=== PATIENT | male | born 1960 | race Caucasian/White ===

== ENCOUNTER 2018-07-02 02:11 | Inpatient (IN) | payer MEDICARE, OTHER ==
[~2018-07-02] VITALS: Ht 177.8 cm; Wt 84.8 kg
[~2018-07-02 02:11] MED LIST: ATOR20TA PO; CHOL10002 PO; CLOZ100T PO; DULA1.5P SQ; INSU300I SQ; LOSA25TA13 PO; MELO-105 PO; METF-440 PO; METO25TA6 PO; NATE120T6 PO; PIOG45TA5 PO
--- NOTE | 2018-07-02 02:33 | NUR ---
ADDICTIONS COUNSELOR ASSISTANT BEDSIDE FOR BLOOD DRAW. PT UNABLE TO GIVE URINE SAMPLE AT THIS TIME. WILL TRY AGAIN AT A LATER TIME.
[2018-07-02 02:43] LABS: BASOPHILS % (AUTO) 0.4 % (0.0-2.0); EOSINOPHILS % (AUTO) 0.6 % (0.0-6.0); HEMATOCRIT 44 % (39-51); HEMOGLOBIN 14.4 g/dL (13.5-17.5); LYMPHOCYTES # (AUTO) 1.7 /CMM (0.8-4.8); LYMPHOCYTES % (AUTO) 14.1 % (20.0-44.0); MEAN CORPUSCULAR HGB CONC 33 g/dl (31.0-36.0); MEAN CORPUSCULAR VOLUME 86 fL (80-96); MONOCYTES # (AUTO) 1.2 /CMM (0.1-1.30); NEUTROPHILS # (AUTO) 9.1 /CMM (1.8-8.9); NEUTROPHILS % (AUTO) 74.9 % (43.0-81.0); PLATELET COUNT (AUTO) 281 /CMM (150-450); RDW COEFFICIENT OF VARIATION 14.4 (11.5-15.0); RED BLOOD CELL COUNT(AUTO) 5.13 MIL/uL (4.5-6.0); WHITE BLOOD COUNT (AUTO) 12.1 K/uL (4.3-11.0)
--- NOTE | 2018-07-02 03:00 | NUR ---
PT UNABLE TO GIVE URINE SAMPLE AT THIS TIME. WILL TRY AGAIN AT A LATER TIME
[2018-07-02 03:09] LABS: ALANINE AMINOTRANSFERASE 48 U/L (12-78); ALBUMIN 3.5 g/dL (3.4-5.0); ALKALINE PHOSPHATASE 103 U/L (46-116); ASPARTATE AMINOTRANSFERASE 45 U/L (15-37); BILIRUBIN,DIRECT 0.2 mg/dL (0.0-0.2); BILIRUBIN,TOTAL 0.6 mg/dL (0.2-1.0); CALCIUM, SERUM 9.5 mg/dL (8.5-10.1); CARBON DIOXIDE 23 mmol/L (21-32); CREATININE 1.4 mg/dL (0.6-1.3); GLUCOSE 271 mg/dL (74-106); SALICYLATE 2.5 mg/dL (2.8-20.0); TOTAL PROTEIN, SERUM 7.6 g/dL (6.4-8.2); UREA NITROGEN, BLOOD 30 mg/dL (7-18)
[2018-07-02 03:10] LABS: ACETAMINOPHEN < 0 ug/ml (10-30); ALCOHOL, BLOOD < 0 mg/dL (0-0)
[2018-07-02 03:17] LABS: CHLORIDE 98 mmol/L (98-107); POTASSIUM 3.7 mmol/L (3.5-5.1); SODIUM SERUM 134 mmol/L (136-145)
--- NOTE | 2018-07-02 04:02 | NUR ---
Patient is resting comfortably in bed with eyes closed. Easily aroused. VSS
--- NOTE | 2018-07-02 04:15 | NUR ---
PT UNABLE TO GIVE URINE SAMPLE AT THIS TIME. MADE AWARE. PER MD, URINE SAMPLE NO LONGER REQUIRED. WILL CONTINUE TO MONITOR PT.
--- NOTE | 2018-07-02 05:17 | NUR ---
REPORT GIVEN TO KEIRA RUSHING FOR GINNY.
[2018-07-02 05:45] VITALS: BP 105/63
--- NOTE | 2018-07-02 05:55 | NUR ---
RN NOTES ADMITTED PT FROM ER VIA WHEELCHAIR, AWAKE, ALERT , NO SIGNS OF DISTRESS AND DISCOMFORT NOTED. UNABLE TO ASSESS PT BECAUSE HE'S NOT RESPONDING TO QUESTIONS BEING ASK, NON INTERACTIVE PT ADMITTED ON A 5150 HOLD FOR DTS. PT IS BANGING HIS HEAD ON THE FINK IN SNF, [facility]. PT APPEARS CALM AT THIS TIME AND IN CATATONIC STATE. SKIN AND BODY ASSESSMENT DONE, SKIN CLEAR AND INTACT.ALL BELONGINGS INVENTORIED AND CHECKED FOR CONTRABAND. KEPT COMFORTABLE AND ATTENDED. SAFETY MEASURES AND FALL PRECAUTION OBSERVED. WILL CONTINUE TO MONITOR TO MAINTAIN SAFETY.
[2018-07-02] MEDS ORDERED: MAG HYDROX/AL HYDROX/SIMETH 30 ML UDC PO PRN (06:00)
[2018-07-02] MEDS ORDERED: ACETAMINOPHEN 325 MG TABLET PO PRN (06:00)
[2018-07-02] MEDS ORDERED: MAGNESIUM HYDROXIDE 30 ML UDC PO PRN (06:00)
[2018-07-02 08:00] VITALS: BP 149/97
[2018-07-02] MEDS ORDERED: FLUO20CA36 PO (09:01)
[2018-07-02] MEDS ORDERED: METO-356 PO (09:01)
[2018-07-02] MEDS ORDERED: DOCU100C36 PO (09:01)
[2018-07-02] MEDS ORDERED: FLUO40CA8 PO (09:01)
[2018-07-02] MEDS ORDERED: INSU100V27 SQ (09:01)
[2018-07-02] MEDS: CLOZAPINE 100 MG TABLET PO SCH ×2 (13:30→21:11)
[2018-07-02] MEDS ORDERED: *INSULIN REGULAR(HUMULIN R)HUM 100 UNIT/ML VIAL SQ PRN (14:00)
[2018-07-02] MEDS ORDERED: INSULIN REGULAR, HUMAN 100 UNIT/ML 3 ML VIAL SQ PRN (14:00)
[2018-07-02] MEDS ORDERED: DEXTROSE 50%-WATER 50 ML DISP.SYRIN IV PRN ×2 (14:00)
--- NOTE | 2018-07-02 15:05 | NUR ---
SW met with pt in his room to conduct his assessment. Present in the room was Logan CAPPS. Pt was sitting on his bed, slouched over rocking himself back and forth. SW attempted to ask pt questions however he was unresponsive. Pt did not have eye contact with SW. SW inquired if pt would like for this SW to return later; which pt agreed. SW will follow up with pt at a later time on this date to attempt to conduct assessment.
--- NOTE | 2018-07-02 15:09 | NUR ---
JOSH met with pt in his room to conduct his assessment for the second time. Present in the room was Logan CAPPS. Pt was laying on his bed with his eyes open. SW asked pt if he was ready to complete assessment. Pt however was un responsive. SW asked pt if there was any family/friends this SW can contact for collateral information. Pt was unresponsive. Josh informed pt the importance of collaborating with SW in order to ensure a safe and appropriate discharge plan. JOSH will follow up with collateral to complete pts assessment.
--- NOTE | 2018-07-02 15:19 | NUR ---
VERNA contacted [facility] and spoke to Valerie, caregiver who confirmed that pt lived there and could return once he is ready and stable. VERNA will contact pts sister, Ni Bunch for collateral information to complete pts assessment.
[2018-07-02 16:00] VITALS: BP 109/65
[2018-07-02] MEDS: LOSARTAN POTASSIUM 25 MG TABLET PO SCH (17:00)
[2018-07-02] MEDS: DOCUSATE SODIUM 100 MG CAPSULE PO SCH (17:00)
[2018-07-02] MEDS: METOPROLOL SUCCINATE 25 MG TAB.SR.24H PO SCH (17:00)
--- NOTE | 2018-07-02 17:06 | NUR ---
JOSH was able to reach pts sister Ni Bunch for collateral information (i.e. assessment) however was unable obtain due to time constraints. Josh informed pts sister that JOSH Mock would call her tomorrow to gather assessment information.
[2018-07-02] MEDS: BLOOD SUGAR DIAGNOSTIC 1 EACH STRIP IN SCH ×2 (17:10→23:28)
[2018-07-02] MEDS: INSULIN REGULAR, HUMAN 100 UNIT/ML 3 ML VIAL SQ PRN (17:24)
--- NOTE | 2018-07-02 17:24 | NUR ---
[id number]: BLOOD SUGAR IS 176 MG/DL AND GAVE 4 UNITS OF REGULAR INSULIN
--- NOTE | 2018-07-02 17:24 | NUR ---
[id number]: BLOOD SUGAR IS 176 MG/DL AND GAVE 4 UNITS OF REGULAR INSULIN
[2018-07-02] MEDS ORDERED: BLOOD SUGAR DIAGNOSTIC 1 EACH STRIP VI SCH (17:30)
--- NOTE | 2018-07-02 18:44 | NUR ---
[id number]: NOTIFIED DR. MATHEWS ABOUT PT REFUSING TO EAT OR DRINK ALL DAY. NO NEW ORDERS GIVEN AT THIS TIME.
--- NOTE | 2018-07-02 20:15 | NUR ---
RN NOTES Patient repeatedly clasping his hands and as per CN, patient was shaking. Ativan given as ordered. Patient refused. Sister at bedside talked to him and convinced him to take the medication.
[2018-07-02 20:17] VITALS: BP 105/58
[2018-07-02 20:19] VITALS: BP 150/84
[2018-07-02 20:23] VITALS: BP 105/58
--- NOTE | 2018-07-02 21:00 | NUR ---
RN NOTES Patient in bed, sister at bedside. Patient's sister was able to convince the patient to take the medications, take some juice and very little pudding.
[2018-07-02] MEDS: LORAZEPAM 0.5 MG TABLET PO PRN (21:12)
[2018-07-03] MEDS: INSULIN REGULAR, HUMAN 100 UNIT/ML 3 ML VIAL SQ PRN ×4 (00:02→18:15)
--- NOTE | 2018-07-03 00:02 | NUR ---
RN NOTES BSL checked, 185mg/dl. As per sliding scale, patient to receive 4 units of regular insulin. Insulin not given as patient has very poor PO intake.
[2018-07-03] MEDS: BLOOD SUGAR DIAGNOSTIC 1 EACH STRIP IN SCH ×4 (05:47→17:49)
--- NOTE | 2018-07-03 05:50 | NUR ---
RN NOTES BSL checked, 185mg/dl. As per sliding scale, patient to receive 4 units of regular insulin. Insulin not administered as patient has very poor PO intake despite encouragement.
--- NOTE | 2018-07-03 05:53 | NUR ---
RN NOTES CHARGE NURSE AWARE OF BLOOD GLUCOSE LEVELS AND NON- ADMINISTRATION OF INSULIN
[2018-07-03 07:20] LABS: ALBUMIN 3.3 g/dL (3.4-5.0); BILIRUBIN,TOTAL 0.6 mg/dL (0.2-1.0); CALCIUM, SERUM 9.2 mg/dL (8.5-10.1); POTASSIUM 3.4 mmol/L (3.5-5.1); TOTAL PROTEIN, SERUM 7.2 g/dL (6.4-8.2)
[2018-07-03 07:42] LABS: BASOPHILS % (AUTO) 0.3 % (0.0-2.0); HEMATOCRIT 43 % (39-51); HEMOGLOBIN 13.9 g/dL (13.5-17.5); LYMPHOCYTES # (AUTO) 1.8 /CMM (0.8-4.8); LYMPHOCYTES % (AUTO) 20.6 % (20.0-44.0); MEAN CORPUSCULAR HGB CONC 33 g/dl (31.0-36.0); MEAN CORPUSCULAR VOLUME 87 fL (80-96); MONOCYTES # (AUTO) 1.1 /CMM (0.1-1.30); MONOCYTES % (AUTO) 12.9 % (2.0-12.0); NEUTROPHILS # (AUTO) 5.6 /CMM (1.8-8.9); NEUTROPHILS % (AUTO) 66.2 % (43.0-81.0); PLATELET COUNT (AUTO) 255 /CMM (150-450); RDW COEFFICIENT OF VARIATION 14.5 (11.5-15.0); RED BLOOD CELL COUNT(AUTO) 4.86 MIL/uL (4.5-6.0); WHITE BLOOD COUNT (AUTO) 8.5 K/uL (4.3-11.0)
[2018-07-03 08:00] VITALS: BP 115/60
[2018-07-03] MEDS: FLUOXETINE HCL 20 MG CAPSULE PO SCH ×2 (09:00→10:03)
[2018-07-03] MEDS: LOSARTAN POTASSIUM 25 MG TABLET PO SCH ×3 (09:00→17:13)
[2018-07-03] MEDS: DOCUSATE SODIUM 100 MG CAPSULE PO SCH ×3 (09:00→17:13)
[2018-07-03] MEDS: METOPROLOL SUCCINATE 25 MG TAB.SR.24H PO SCH ×3 (09:00→17:14)
[2018-07-03] MEDS: CLOZAPINE 100 MG TABLET PO SCH ×3 (09:00→21:57)
[2018-07-03] MEDS ORDERED: POTASSIUM CHLORIDE 20 MEQ TAB.PRT.SR PO SCH (09:30)
--- NOTE | 2018-07-03 13:47 | NUR ---
VERNA called the pt's sister, Ni ([phone]), and conducted the assessment with her since the pt was not responding verbally. VERNA also discussed the discharge plan with her and she stated that she thinks a assisted facility would be the best option.
--- NOTE | 2018-07-03 13:49 | NUR ---
Initial Discharge Plan: Pt currently resides at [facility] located at [address] [place] [address]; ([phone]). Per pt's sister, Ni ([phone]), the pt should be discharged to a detention. VERNA suggested [facility] due to the sister's location and she approved it. VERNA will work with the pt and the MD regarding discharge planning. VERNA will form a safe and proper discharge.
[2018-07-03 16:51] VITALS: BP 117/60
--- NOTE | 2018-07-03 19:30 | NUR ---
RECEIVED PATIENT UP IN CHAIR IN ROOM WITH VISITOR. AO TO SELF; APHASIC. NO ACUTE DISTRESS NOTED. NO SIGNS OF PAIN NOTED. CALM AT THIS TIME. SAFETY REMINDERS GIVEN. ROOM HAS LOW BED WITH BILATERAL UPPER SIDE RAILS UP. CALL HOU WITHIN EASY REACH. SITTER AT BEDSIDE. WILL CONTINUE TO MONITOR. Addendum: 07/03/18 at 2030 by RUFINO MANUEL RN UPON FURTHER ASSESSMENT, PATIENT NOTED ABLE TO SPEAK, BUT DOES NOT ALWAYS ANSWER QUESTIONS.
[2018-07-03 19:43] VITALS: BP 112/61
[2018-07-03 19:48] VITALS: BP 112/61
[2018-07-03 19:55] VITALS: BP 112/61
--- NOTE | 2018-07-03 20:30 | NUR ---
GPS RN NOTE, PATIENT SISTER ADAM MURPHY BROUGHT IN CLOZARIL FROM HOME YESTERDAY AND IT IS IN OUR [facility] AT THIS TIME. PATIENT IS TO USE CLOZARIL FROM HOME NOT CLOZAPINE GENERIC FROM HOSPITAL. LEFT NOTE FOR DR CÁRDENAS ON COMMUNICATION BOARD BUT PHARMACY NEEDS TO BE MADE AWARE DURING AM SHIFT. WILL ENDORSE TO AM SHIFT NURSE.
[2018-07-03] MEDS: ATORVASTATIN 10 MG TABLET PO SCH (21:56)
[2018-07-04] MEDS: BLOOD SUGAR DIAGNOSTIC 1 EACH STRIP IN SCH ×4 (00:12→17:31)
[2018-07-04] MEDS: INSULIN REGULAR, HUMAN 100 UNIT/ML 3 ML VIAL SQ PRN ×4 (00:14→17:32)
--- NOTE | 2018-07-04 06:45 | NUR ---
PATIENT ASLEEP, EASILY AROUSABLE. RESPIRATIONS EVEN. DUE MEDS GIVEN WITH NO ASE NOTED. NO SYMPTOMS OF HYPER/HYPOGLYCEMIA. PATIENT SLEPT WELL. KEPT CLEAN, DRY, AND COMFORTABLE. SAFETY PRECAUTIONS AND COMFORT MEASURES IN PLACE. SITTER AT BEDSIDE. WILL GIVE REPORT TO DAY SHIFT FOR CONTINUITY OF CARE.
[2018-07-04 08:00] VITALS: BP 121/63
[2018-07-04] MEDS ORDERED: CLOZAPINE 100 MG TABLET PO SCH ×4 (09:00→10:00)
[2018-07-04] MEDS: FLUOXETINE HCL 20 MG CAPSULE PO SCH (09:45)
[2018-07-04] MEDS: METOPROLOL SUCCINATE 25 MG TAB.SR.24H PO SCH ×2 (09:46→16:51)
[2018-07-04] MEDS: LOSARTAN POTASSIUM 25 MG TABLET PO SCH ×2 (09:46→16:51)
[2018-07-04] MEDS: DOCUSATE SODIUM 100 MG CAPSULE PO SCH ×2 (09:46→16:51)
[2018-07-04] MEDS: CLOZAPINE 100 MG TABLET PO SCH ×2 (10:04→21:51)
[2018-07-04 12:12] LABS: HEMATOCRIT 41 % (39-51); HEMOGLOBIN 13.6 g/dL (13.5-17.5); RED BLOOD CELL COUNT(AUTO) 4.79 MIL/uL (4.5-6.0)
[2018-07-04 12:13] LABS: BASOPHILS % (AUTO) 0.4 % (0.0-2.0); LYMPHOCYTES # (AUTO) 1.5 /CMM (0.8-4.8); LYMPHOCYTES % (AUTO) 12.5 % (20.0-44.0); MEAN CORPUSCULAR HGB CONC 33 g/dl (31.0-36.0); MEAN CORPUSCULAR VOLUME 86 fL (80-96); MONOCYTES # (AUTO) 1.3 /CMM (0.1-1.30); MONOCYTES % (AUTO) 10.5 % (2.0-12.0); NEUTROPHILS # (AUTO) 9.2 /CMM (1.8-8.9); NEUTROPHILS % (AUTO) 76.6 % (43.0-81.0); PLATELET COUNT (AUTO) 216 /CMM (150-450); RDW COEFFICIENT OF VARIATION 14.8 (11.5-15.0)
[2018-07-04 16:00] VITALS: BP 127/70
[2018-07-04 16:27] VITALS: BP 117/58
[2018-07-04] MEDS: ATORVASTATIN 10 MG TABLET PO SCH (21:51)
[2018-07-05] MEDS: BLOOD SUGAR DIAGNOSTIC 1 EACH STRIP IN SCH ×5 (00:19→23:00)
[2018-07-05] MEDS: INSULIN REGULAR, HUMAN 100 UNIT/ML 3 ML VIAL SQ PRN ×5 (00:21→22:59)
[2018-07-05 08:00] VITALS: BP 136/74
[2018-07-05] MEDS: DOCUSATE SODIUM 100 MG CAPSULE PO SCH ×2 (09:44→16:46)
[2018-07-05] MEDS: FLUOXETINE HCL 20 MG CAPSULE PO SCH (09:44)
[2018-07-05] MEDS: LOSARTAN POTASSIUM 25 MG TABLET PO SCH ×2 (09:45→16:47)
[2018-07-05] MEDS: METOPROLOL SUCCINATE 25 MG TAB.SR.24H PO SCH ×2 (09:45→16:47)
[2018-07-05] MEDS: CLOZAPINE 100 MG TABLET PO SCH ×2 (09:46→21:28)
--- NOTE | 2018-07-05 11:54 | NUR ---
SW called the pt's sister, Ni ([phone]), and left a voicemail stating that the SW will be sending out a referral for the pt to [facility] and wanted to discuss whether or not the pt's sister was considering any other options.
--- NOTE | 2018-07-05 13:48 | NUR ---
Ni ([phone]), pt's sister, called the and informed her that [facility] is also an option for a snf facility that she wanted to consider.
--- NOTE | 2018-07-05 14:05 | NUR ---
VERNA faxed a referral to [facility] to the fax number: [phone] and to [facility] to the fax number: [phone].
[2018-07-05 16:00] VITALS: BP 104/57
[2018-07-05 20:00] VITALS: BP 117/70
[2018-07-05] MEDS: ATORVASTATIN 10 MG TABLET PO SCH (21:29)
[2018-07-05] MEDS: TEMAZEPAM 7.5 MG CAPSULE PO PRN (21:29)
[2018-07-05] MEDS ORDERED: TAMSULOSIN 0.4 MG CAP.SR.24H PO SCH (22:00)
[2018-07-06 00:57] LABS: APPEARANCE,URINE TURBID (CLEAR); BILIRUBIN,URINE NEGATIVE (NEGATIVE); BLOOD, URINE NEGATIVE Ery/uL (NEGATIVE); COLOR,URINE YELLOW (YELLOW); KETONES,URINE TRACE (NEGATIVE); LEUKOCYTE ESTERASE ,URINE NEGATIVE (NEGATIVE); NITRITE, URINE NEGATIVE (NEGATIVE); PROTEIN,URINE NEGATIVE (NEGATIVE); UGLUCOSE 3+ mg/dL (NEGATIVE)
[2018-07-06 01:05] LABS: BACTERIA,URINE Moderate /HPF (None Seen); RBC,URINE 0-2 /HPF (0-2); SQUAMOUS EPITHELIAL CELL,UR Few /HPF (None Seen); URINE AMORPHOUS URATE Many /HPF (None Seen); WBC,URINE 0-2 /HPF (0-3)
[2018-07-06] MEDS: INSULIN REGULAR, HUMAN 100 UNIT/ML 3 ML VIAL SQ PRN ×2 (06:31→12:34)
[2018-07-06] MEDS: BLOOD SUGAR DIAGNOSTIC 1 EACH STRIP IN SCH ×3 (06:32→17:32)
[2018-07-06 08:00] VITALS: BP 129/71
[2018-07-06] MEDS: Fluoxetine 10 mg capsule PO SCH (08:37)
[2018-07-06] MEDS: HOME MED MISCELLANEOUS PO SCH ×2 (08:37→21:08)
[2018-07-06] MEDS: DOCUSATE SODIUM 100 MG CAPSULE PO SCH ×2 (08:38→17:05)
[2018-07-06] MEDS: LOSARTAN POTASSIUM 25 MG TABLET PO SCH ×2 (08:38→17:06)
[2018-07-06] MEDS: METOPROLOL SUCCINATE 25 MG TAB.SR.24H PO SCH ×2 (08:38→17:06)
--- NOTE | 2018-07-06 15:37 | NUR ---
PATIENT IS SCRATCHING HIS FOREHEAD. REDNESS. PICTURES IN THE CHART.
[2018-07-06 16:00] VITALS: BP 120/59
--- NOTE | 2018-07-06 17:47 | NUR ---
RN NOTE: ACCUCHECK WAS 248. WILL HOLD BECAUSE PATIENT REFUSES TO EAT.
--- NOTE | 2018-07-06 18:52 | NUR ---
RN NOTE: TURNAROUND ENGINEER SITTER FOR PATIENT STATES THAT THE PATIENT IS CONTINUING TO SCRATCH HEAD. RED NEHA ON HEAD DOCUMENTED AND IN CHART.
[2018-07-06 20:00] VITALS: BP 131/68
[2018-07-06] MEDS: ATORVASTATIN 10 MG TABLET PO SCH (21:08)
[2018-07-06] MEDS: TEMAZEPAM 7.5 MG CAPSULE PO PRN (23:13)
--- NOTE | 2018-07-06 23:14 | NUR ---
TEMAZEPAM 7.5 MG CAP 1 PO GIVEN FOR SLEEP. PATIENT STILL AWAKE.
--- NOTE | 2018-07-07 03:04 | NUR ---
ACCUCHECK DONE AROUND 2100 = 221 MG/DL, NO INSULIN GIVEN, PATIENT REFUSED TO EAT FOOD/SNACKS.
[2018-07-07] MEDS: LORAZEPAM 0.5 MG TABLET PO PRN (03:08)
--- NOTE | 2018-07-07 03:14 | NUR ---
AWAKE AT THIS TIME, APPEARS ANXIOUS, ATIVAN 0.5 MG TAB PO GIVEN, CLENCHED BOTH OF HIS FISTS, ATTEMPTS HIT HIS FOREHEAD WITH FISTS.
[2018-07-07] MEDS: BLOOD SUGAR DIAGNOSTIC 1 EACH STRIP IN SCH ×5 (06:19→23:16)
[2018-07-07] MEDS: INSULIN REGULAR, HUMAN 100 UNIT/ML 3 ML VIAL SQ PRN ×5 (06:21→23:16)
--- NOTE | 2018-07-07 06:24 | NUR ---
ACCUCHECK NOW 235 MG/DL, 8 UNITS REGULAR INSULN SC ADMINISTERED. ATE 1/2 EGG SANDWICH, 1/2 VANILLA PUDDING.
--- NOTE | 2018-07-07 07:59 | NUR ---
[id number]: BLOOD SUGAR IS 265 MG/DL AND GAVE 12 UNITS OF REGULAR INSULIN
[2018-07-07 08:00] VITALS: BP 122/68
[2018-07-07] MEDS: DOCUSATE SODIUM 100 MG CAPSULE PO SCH ×2 (08:02→17:07)
[2018-07-07] MEDS: Fluoxetine 10 mg capsule PO SCH (08:02)
[2018-07-07] MEDS: HOME MED MISCELLANEOUS PO SCH ×2 (08:02→21:57)
[2018-07-07] MEDS: LOSARTAN POTASSIUM 25 MG TABLET PO SCH ×2 (08:03→17:08)
[2018-07-07] MEDS: METOPROLOL SUCCINATE 25 MG TAB.SR.24H PO SCH ×2 (08:03→17:08)
--- NOTE | 2018-07-07 12:09 | NUR ---
[id number]: BLOOD SUGAR IS 412 MG/DL AND GAVE 20 UNITS OF REGULAR INSULIN
[2018-07-07 16:00] VITALS: BP 133/74
--- NOTE | 2018-07-07 17:02 | NUR ---
[id number]: BLOOD SUGAR IS 386 MG/DL AND GAVE 20 UNITS OF REGULAR INSULIN
--- NOTE | 2018-07-07 19:45 | NUR ---
GPS RN NOTE: PATIENT UP IN GERICHAIR IN TV ROOM, NO ACUTE DISTRESS NOTED. BREATHING EVEN AND UNLABORED, NO SOB NOTED. PATIENT CALM AT THIS TIME. NO S/S OF HYPER/HYPOGLYCEMIA NOTED. WILL CONTINUE TO MONITOR.
[2018-07-07 20:00] VITALS: BP 149/84
[2018-07-07] MEDS: ATORVASTATIN 10 MG TABLET PO SCH (21:57)
--- NOTE | 2018-07-07 23:30 | NUR ---
GPS RN NOTE: PATIENT BLOOD SUGAR LEVEL 158 MG/DL, 2 UNITS PER SLIDING SCALE. NO S/S OF HYPER/HYPOGLYCEMIA NOTED. WILL CONTINUE TO MONITOR.
[2018-07-08] MEDS: BLOOD SUGAR DIAGNOSTIC 1 EACH STRIP IN SCH ×4 (06:26→23:19)
[2018-07-08] MEDS: INSULIN REGULAR, HUMAN 100 UNIT/ML 3 ML VIAL SQ PRN ×4 (06:28→23:18)
--- NOTE | 2018-07-08 06:30 | NUR ---
GPS RN NOTE: PATIENT RESTING IN BED, NO ACUTE DISTRESS NOTED. BREATHING EVEN AND UNLABORED, NO SOB NOTED. PATIENT CALM THROUGHOUT SHIFT. BLOOD SUGAR LEVEL 227MG/DL, TO RECEIVE 8 UNITS OF INSULIN PER SLIDING SCALE. NO S/S OF HYPER/HYPOGLYCEMIA NOTED. SLEPT AT LEAST 8 HOURS OF SLEEP. WILL ENDORSE TO DAY NURSE TO CONTINUE WITH PLAN OF CARE.
[2018-07-08 07:05] LABS: BASOPHILS % (AUTO) 0.5 % (0.0-2.0); HEMATOCRIT 41 % (39-51); HEMOGLOBIN 13.3 g/dL (13.5-17.5); LYMPHOCYTES # (AUTO) 2.5 /CMM (0.8-4.8); LYMPHOCYTES % (AUTO) 29.1 % (20.0-44.0); MEAN CORPUSCULAR HGB CONC 33 g/dl (31.0-36.0); MEAN CORPUSCULAR VOLUME 88 fL (80-96); MONOCYTES % (AUTO) 11.4 % (2.0-12.0); PLATELET COUNT (AUTO) 241 /CMM (150-450); RED BLOOD CELL COUNT(AUTO) 4.65 MIL/uL (4.5-6.0); WHITE BLOOD COUNT (AUTO) 8.5 K/uL (4.3-11.0)
[2018-07-08 07:22] LABS: ALBUMIN 2.8 g/dL (3.4-5.0); BILIRUBIN,TOTAL 0.5 mg/dL (0.2-1.0); CALCIUM, SERUM 8.9 mg/dL (8.5-10.1); CREATININE 0.7 mg/dL (0.6-1.3); POTASSIUM 3.4 mmol/L (3.5-5.1); TOTAL PROTEIN, SERUM 6.4 g/dL (6.4-8.2)
[2018-07-08 08:00] VITALS: BP 117/67
[2018-07-08] MEDS: DOCUSATE SODIUM 100 MG CAPSULE PO SCH ×2 (08:34→17:58)
[2018-07-08] MEDS: Fluoxetine 10 mg capsule PO SCH (08:34)
[2018-07-08] MEDS: METOPROLOL SUCCINATE 25 MG TAB.SR.24H PO SCH ×2 (08:35→17:58)
[2018-07-08] MEDS: LOSARTAN POTASSIUM 25 MG TABLET PO SCH ×2 (08:35→17:58)
[2018-07-08] MEDS ORDERED: POTASSIUM CHLORIDE 20 MEQ TAB.PRT.SR PO SCH ×2 (10:00→12:00)
--- NOTE | 2018-07-08 10:22 | NUR ---
VERNA contacted Omaira ([phone]) from [facility] and she stated that she will be following up with the referral.
--- NOTE | 2018-07-08 11:01 | NUR ---
VERNA called the pt's sister, Ni ([phone]), and informed her that the pt is going to be assessed by Omaira from [facility] later today.
[2018-07-08] MEDS: HOME MED MISCELLANEOUS PO SCH ×3 (11:19→21:50)
--- NOTE | 2018-07-08 12:00 | NUR ---
GPS/RN BS 280- 12 UNITS REGULAR INSULIN ADMINISTERED PER SLIDING SCALE. WILL CONTINUE TO MONITOR.
[2018-07-08] MEDS: LORAZEPAM 0.5 MG TABLET PO PRN (12:46)
[2018-07-08 16:00] VITALS: BP 132/76
--- NOTE | 2018-07-08 18:00 | NUR ---
GPS/RN BS 340- 16 UNITS REGULAR INSULIN ADMINISTERED PER SLIDING SCALE. WILL CONTINUE TO MONITOR.
--- NOTE | 2018-07-08 19:30 | NUR ---
[facility] WITH SITTER. AO X 1, DOES NOT ANSWER QUESTIONS. NO ACUTE DISTRESS NOTED. NO SIGNS OF PAIN NOTED AT THIS TIME. NO SYMPTOMS OF HYPER/HYPOGLYCEMIA. SAFETY REMINDERS GIVEN. ON LOW BED WITH BILATERAL UPPER SIDE RAILS UP. CALL HOU WITHIN EASY REACH. WILL CONTINUE TO MONITOR.
[2018-07-08 19:53] VITALS: BP 131/77
[2018-07-08] MEDS: ATORVASTATIN 10 MG TABLET PO SCH (21:49)
[2018-07-09] MEDS: BLOOD SUGAR DIAGNOSTIC 1 EACH STRIP IN SCH ×4 (05:14→23:06)
[2018-07-09] MEDS: INSULIN REGULAR, HUMAN 100 UNIT/ML 3 ML VIAL SQ PRN ×4 (05:21→23:41)
--- NOTE | 2018-07-09 06:25 | NUR ---
PATIENT ASLEEP IN BED , EASILY AROUSABLE. RESPIRATIONS EVEN. NO SIGNS OF PAIN NOTED. NO SYMPTOMS OF HYPER/HYPOGLYCEMIA. DUE MEDS GIVEN WITH NO ASE NOTED. NEEDS ATTENDED. SAFETY PRECAUTIONS AND COMFORT MEASURES IN PLACE. WILL GIVE REPORT TO DAY SHIFT FOR CONTINUITY OF CARE. SITTER AT BEDSIDE.
[2018-07-09 08:00] VITALS: BP 130/71
[2018-07-09] MEDS: DOCUSATE SODIUM 100 MG CAPSULE PO SCH ×2 (08:40→16:56)
[2018-07-09] MEDS: LOSARTAN POTASSIUM 25 MG TABLET PO SCH ×2 (08:40→16:55)
[2018-07-09] MEDS: METOPROLOL SUCCINATE 25 MG TAB.SR.24H PO SCH ×2 (08:41→16:56)
[2018-07-09] MEDS: HOME MED MISCELLANEOUS PO SCH ×3 (08:42→21:42)
[2018-07-09] MEDS ORDERED: Fluoxetine 10 mg capsule PO SCH (09:00)
--- NOTE | 2018-07-09 10:08 | NUR ---
VERNA contacted Omaira ([phone]) from [facility] and she stated that the pt is clinically approved.
--- NOTE | 2018-07-09 11:30 | NUR ---
GPS/RN PATIENT SHOWERED WITH ASSISTANCE FROM MULTI DISCIPLINED LANGUAGE ANALYST.
--- NOTE | 2018-07-09 12:27 | NUR ---
GPS/RN LORRAINE TOVAR CONTACTED REGARDING BS OF 426, 20 UNITS REGULAR INSULIN ADMINISTERED PER SLIDING SCALE. WILL RECHECK. AWAITING CALL BACK.
--- NOTE | 2018-07-09 13:20 | NUR ---
GPS/RN BS RECHECKED , 496, RECHECKED AFTER 5 MIN, 517, MARKET CONSULTANT LA ON UNIT AND AWARE. STATED. STATED TO RECHECK IN 2 HOURS, NO OTHER NEW ORDERS AT THIS TIME. WILL CONTINUE TO MONITOR.
[2018-07-09 16:00] VITALS: BP 116/63
--- NOTE | 2018-07-09 17:56 | NUR ---
GPS/RN BS IS 315, ADMINISTERED 16 UNITS REGULAR INSULIN PER SLIDING SCALE. FLIGHT ENGINEER PERFORMANCE QUALIFIED ZAIRA AWARE. WILL CONTINUE TO MONITOR.
[2018-07-09 20:25] VITALS: BP 125/65
[2018-07-09] MEDS: ATORVASTATIN 10 MG TABLET PO SCH (21:43)
[2018-07-09] MEDS ORDERED: INSULIN GLARGINE, 100 UNIT/ML CARTRIDGE SQ SCH (22:00)
--- NOTE | 2018-07-10 | NUR ---
GPS/RN PT. BS OF 250 MG/DL, 8 UNITS REGULAR INSULIN ADMINISTERED PER SLIDING SCALE. NO ACUTE DISTRESS NOTED DENIES ANY DISCOMFORT.PT. SLEEPING AT THIS TIME.
[2018-07-10] MEDS: INSULIN REGULAR, HUMAN 100 UNIT/ML 3 ML VIAL SQ PRN ×2 (07:09→19:15)
[2018-07-10] MEDS: BLOOD SUGAR DIAGNOSTIC 1 EACH STRIP IN SCH ×3 (07:11→18:00)
--- NOTE | 2018-07-10 07:17 | NUR ---
GPS/RN PT. BS OF 255 MG/DL, 12 UNITS REGULAR INSULIN ADMINISTERED PER SLIDING SCALE. NO ACUTE DISTRESS NOTED DENIES ANY DISCOMFORT, PT.RESTING AT THIS TIME.
--- NOTE | 2018-07-10 07:23 | NUR ---
GPS RN NOTES: PT.REPORTS GIVEN TO ON COMING NURSE , PT. WITH CONTINUITY OF CARE.
[2018-07-10 08:00] VITALS: BP 120/61
[2018-07-10] MEDS: FLUOXETINE HCL 20 MG CAPSULE PO SCH (09:03)
[2018-07-10] MEDS: LOSARTAN POTASSIUM 25 MG TABLET PO SCH ×2 (09:03→16:40)
[2018-07-10] MEDS: DOCUSATE SODIUM 100 MG CAPSULE PO SCH ×2 (09:04→16:40)
[2018-07-10] MEDS: METOPROLOL SUCCINATE 25 MG TAB.SR.24H PO SCH ×2 (09:04→16:40)
[2018-07-10] MEDS: HOME MED MISCELLANEOUS PO SCH ×3 (09:05→21:23)
--- NOTE | 2018-07-10 12:16 | NUR ---
SW met with the pt to discuss his current situation. Pt has not been eating his meals (20% completion) and is still not communicating verbally.
[2018-07-10 16:00] VITALS: BP 132/65
[2018-07-10 19:53] VITALS: BP 133/69
[2018-07-10] MEDS: ATORVASTATIN 10 MG TABLET PO SCH (21:23)
[2018-07-10] MEDS ORDERED: INSULIN GLARGINE, 100 UNIT/ML CARTRIDGE SQ SCH (22:00)
--- NOTE | 2018-07-11 00:46 | NUR ---
GPS/RN PT. BS OF 271 MG/DL, 12 UNITS REGULAR INSULIN ADMINISTERED PER SLIDING SCALE. NO ACUTE DISTRESS NOTED DENIES ANY DISCOMFORT.PT. SLEEPING AT THIS TIME.
[2018-07-11] MEDS: INSULIN REGULAR, HUMAN 100 UNIT/ML 3 ML VIAL SQ PRN ×4 (00:56→17:37)
[2018-07-11] MEDS: BLOOD SUGAR DIAGNOSTIC 1 EACH STRIP IN SCH ×4 (00:58→17:30)
--- NOTE | 2018-07-11 07:09 | NUR ---
GPS/RN PT. BS OF 260 MG/DL. ENDORSE TO ON COMING NURSE FOR CONTINUITY OF CARE . NO ACUTE DISTRESS NOTED DENIES ANY DISCOMFORT.PT.RESTING AT THIS TIME .
[2018-07-11 08:00] VITALS: BP 131/69
[2018-07-11] MEDS: METOPROLOL SUCCINATE 25 MG TAB.SR.24H PO SCH ×2 (08:36→16:48)
[2018-07-11] MEDS: FLUOXETINE HCL 20 MG CAPSULE PO SCH (08:36)
[2018-07-11] MEDS: LOSARTAN POTASSIUM 25 MG TABLET PO SCH ×2 (08:36→16:48)
[2018-07-11] MEDS: DOCUSATE SODIUM 100 MG CAPSULE PO SCH ×2 (08:36→16:47)
[2018-07-11] MEDS: HOME MED MISCELLANEOUS PO SCH ×4 (08:37→23:00)
--- NOTE | 2018-07-11 14:05 | NUR ---
VERNA contacted Omaira ([phone]) from [facility] and confirmed that the pt is still accepted to the facility.
--- NOTE | 2018-07-11 14:08 | NUR ---
SW called the pt's sister, Ni ([phone]), and informed her that the SW has not been given a discharge date yet and that once she does she will be calling the pt's sister with that update. She informed the SW that she does not want a discharge.
[2018-07-11 16:07] VITALS: BP 122/74
[2018-07-11 20:08] VITALS: BP 115/69
--- NOTE | 2018-07-11 20:30 | NUR ---
GPS RN Patient sister would like Metformin 500 mg BID, Stalix 125 mg TID and Actos 45 mg Q AM to be added to his medication. She also requested the diet to be changed to diabetic diet instead on cardiac. Will endorse to AM shift to notify Addendum: 07/12/18 at 0625 by BLADIMIR MCCLELLAND RN Amended: Links added.
[2018-07-11] MEDS: INSULIN GLARGINE, 100 UNIT/ML CARTRIDGE SQ SCH (22:00)
[2018-07-11] MEDS: ATORVASTATIN 10 MG TABLET PO SCH ×2 (22:00→23:00)
--- NOTE | 2018-07-12 06:09 | NUR ---
GPS RN Patient was calm and quiet the entire night. Went to bed at 2200 and was awake in bed until 0130. Fell asleep at 0130 and been sleeping since. Refused Clozapine, Lipitor, Lantus and accu check at midnight. Addendum: 07/12/18 at 0612 by BLADIMIR MCCLELLAND RN Amended: Links added.
[2018-07-12 06:44] LABS: BASOPHILS % (AUTO) 0.3 % (0.0-2.0); HEMATOCRIT 42 % (39-51); HEMOGLOBIN 13.5 g/dL (13.5-17.5); LYMPHOCYTES # (AUTO) 2.6 /CMM (0.8-4.8); LYMPHOCYTES % (AUTO) 28.5 % (20.0-44.0); MEAN CORPUSCULAR HGB CONC 32 g/dl (31.0-36.0); MEAN CORPUSCULAR VOLUME 89 fL (80-96); MONOCYTES # (AUTO) 0.9 /CMM (0.1-1.30); MONOCYTES % (AUTO) 9.4 % (2.0-12.0); NEUTROPHILS # (AUTO) 5.7 /CMM (1.8-8.9); NEUTROPHILS % (AUTO) 61.8 % (43.0-81.0); PLATELET COUNT (AUTO) 234 /CMM (150-450); RDW COEFFICIENT OF VARIATION 14.6 (11.5-15.0); WHITE BLOOD COUNT (AUTO) 9.2 K/uL (4.3-11.0)
[2018-07-12 08:00] VITALS: BP 118/72
[2018-07-12] MEDS: BLOOD SUGAR DIAGNOSTIC 1 EACH STRIP IN SCH ×5 (08:45→23:27)
[2018-07-12] MEDS: METOPROLOL SUCCINATE 25 MG TAB.SR.24H PO SCH ×2 (09:00→17:49)
[2018-07-12] MEDS: DOCUSATE SODIUM 100 MG CAPSULE PO SCH ×2 (09:00→17:48)
[2018-07-12] MEDS: LOSARTAN POTASSIUM 25 MG TABLET PO SCH ×2 (09:00→17:49)
[2018-07-12] MEDS: CLOZARIL 100 MG PO SCH ×2 (09:00→13:30)
[2018-07-12] MEDS: FLUOXETINE HCL 20 MG CAPSULE PO SCH ×2 (09:00→13:31)
--- NOTE | 2018-07-12 09:11 | NUR ---
GPS/RN pt refused all po am meds offred x3. no insulin coverage given as pt refused to eat as well.
[2018-07-12] MEDS ORDERED: HOME MED MISCELLANEOUS PO SCH (13:00)
--- NOTE | 2018-07-12 13:32 | NUR ---
GPS/RN PT AGREED TO TAKE FLUOXETINE 60MG AND CLOZAPINE 100MG AT THIS TIME. STILL REFUSED TO EAT. FLUID INTAKE ENCOURAGED. DR CÁRDENAS AND UNIQUE PETERS AWARE OF PT NOT COMPLIANCE
--- NOTE | 2018-07-12 15:31 | NUR ---
VERNA contacted Omaira ([phone]) from [facility] and confirmed that the pt is still accepted to the facility.
[2018-07-12 16:00] VITALS: BP 117/66
[2018-07-12] MEDS: METFORMIN 500 MG TABLET PO SCH (17:48)
[2018-07-12] MEDS: NATEGLINIDE 60 MG TABLET PO SCH (17:49)
--- NOTE | 2018-07-12 18:01 | NUR ---
GPS/RN PT TOOK MEDS SCHEDULED FOR 1700. NO INSULIN COVERAGE GIVEN PT ATE ONLY 5% OF THE DINNER. FLUIDS ENCOURAGED.
[2018-07-12 20:00] VITALS: BP 126/71
[2018-07-12] MEDS: HOME MED MISCELLANEOUS PO SCH (21:20)
[2018-07-12] MEDS: ATORVASTATIN 10 MG TABLET PO SCH (21:27)
[2018-07-12] MEDS: TEMAZEPAM 7.5 MG CAPSULE PO PRN (21:27)
--- NOTE | 2018-07-12 21:28 | NUR ---
TEMAZEPAM 7.5 MG CAP PO GIVEN FOR SLEEP.
--- NOTE | 2018-07-12 21:46 | NUR ---
ACCUCHECK NOW 185 MG/DL.
[2018-07-12] MEDS: INSULIN GLARGINE, 100 UNIT/ML CARTRIDGE SQ SCH (23:26)
--- NOTE | 2018-07-12 23:28 | NUR ---
4 units of regular insulin sc administered. Patient had egg sandwich and apple sauce for snacks.
[2018-07-12] MEDS: INSULIN REGULAR, HUMAN 100 UNIT/ML 3 ML VIAL SQ PRN (23:32)
[2018-07-12] MEDS: LORAZEPAM 0.5 MG TABLET PO PRN (23:43)
--- NOTE | 2018-07-12 23:47 | NUR ---
ATIVAN 0.5 MG TAB 1 PO GIVEN.
[2018-07-13] MEDS: BLOOD SUGAR DIAGNOSTIC 1 EACH STRIP IN SCH ×3 (06:11→17:35)
--- NOTE | 2018-07-13 06:13 | NUR ---
ACCUCHECK 174 MG/DL.
[2018-07-13] MEDS: INSULIN REGULAR, HUMAN 100 UNIT/ML 3 ML VIAL SQ PRN ×3 (07:11→17:36)
[2018-07-13 08:00] VITALS: BP 109/61
[2018-07-13] MEDS: NATEGLINIDE 60 MG TABLET PO SCH ×3 (08:09→17:02)
[2018-07-13] MEDS: DOCUSATE SODIUM 100 MG CAPSULE PO SCH ×2 (08:09→17:02)
[2018-07-13] MEDS: METFORMIN 500 MG TABLET PO SCH ×2 (08:09→17:02)
[2018-07-13] MEDS: METOPROLOL SUCCINATE 25 MG TAB.SR.24H PO SCH ×2 (08:09→17:02)
[2018-07-13] MEDS: LOSARTAN POTASSIUM 25 MG TABLET PO SCH ×2 (08:10→17:02)
[2018-07-13] MEDS: CLOZARIL 100 MG PO SCH ×2 (08:13→12:07)
[2018-07-13] MEDS: PIOGLITAZONE HCL 15 MG TABLET PO SCH (08:18)
[2018-07-13] MEDS: FLUOXETINE HCL 20 MG CAPSULE PO SCH (08:21)
[2018-07-13 16:00] VITALS: BP 122/70
[2018-07-13 20:00] VITALS: BP 123/71
[2018-07-13] MEDS: TEMAZEPAM 7.5 MG CAPSULE PO PRN (20:16)
--- NOTE | 2018-07-13 20:17 | NUR ---
TEMAZEPAM 7.5 MG CAP 1 PO GIVEN FOR SLEEP.
--- NOTE | 2018-07-13 21:00 | NUR ---
ACCUCHECK 132 MG/DL.
[2018-07-13] MEDS: HOME MED MISCELLANEOUS PO SCH (21:01)
[2018-07-13] MEDS: ATORVASTATIN 10 MG TABLET PO SCH (21:01)
[2018-07-13] MEDS: INSULIN GLARGINE, 100 UNIT/ML CARTRIDGE SQ SCH (22:23)
[2018-07-13] MEDS: LORAZEPAM 0.5 MG TABLET PO PRN (23:12)
--- NOTE | 2018-07-13 23:14 | NUR ---
PATIENT STILL AWAKE, ATIVAN 0.5 MG TAB PO GIVEN
[2018-07-14] MEDS: INSULIN REGULAR, HUMAN 100 UNIT/ML 3 ML VIAL SQ PRN ×5 (00:02→23:33)
--- NOTE | 2018-07-14 00:04 | NUR ---
2 units reg. insulin sc administered, bs = 150 mg/dl. Patient very cooperative. Had 1 1/2 taiwo pudding and 120 ml of apple juice earlier for night snacks.
[2018-07-14] MEDS: BLOOD SUGAR DIAGNOSTIC 1 EACH STRIP IN SCH ×5 (05:04→23:27)
--- NOTE | 2018-07-14 05:05 | NUR ---
ACCUCHECK NOW = 92 MG/DL, NO INSULIN COVERAGE AT THIS TIME. ORANGE JUICE 250 ML PO GIVEN.
[2018-07-14 08:00] VITALS: BP 151/80
--- NOTE | 2018-07-14 08:00 | NUR ---
GPS/RN BS 174, 4 UNITS REGULAR INSULIN ADMINISTERED PER SLIDING SCALE. WILL CONTINUE TO MONITOR.
[2018-07-14] MEDS: PIOGLITAZONE HCL 15 MG TABLET PO SCH (08:50)
[2018-07-14] MEDS: LOSARTAN POTASSIUM 25 MG TABLET PO SCH ×2 (08:50→16:28)
[2018-07-14] MEDS: NATEGLINIDE 60 MG TABLET PO SCH ×3 (08:50→16:27)
[2018-07-14] MEDS: DOCUSATE SODIUM 100 MG CAPSULE PO SCH ×2 (08:51→16:26)
[2018-07-14] MEDS: METOPROLOL SUCCINATE 25 MG TAB.SR.24H PO SCH ×2 (08:51→16:28)
[2018-07-14] MEDS: FLUOXETINE HCL 20 MG CAPSULE PO SCH (08:51)
[2018-07-14] MEDS: CLOZARIL 100 MG PO SCH ×2 (08:51→11:59)
[2018-07-14] MEDS: METFORMIN 500 MG TABLET PO SCH ×2 (09:12→16:27)
--- NOTE | 2018-07-14 12:15 | NUR ---
GPS/RN BS 318- 16 UNITS REGULAR INSULIN ADMINISTERED PER SLIDING SCALE. WILL CONTINUE TO MONITOR.
[2018-07-14 16:00] VITALS: BP 125/72
[2018-07-14 20:00] VITALS: BP 105/53
[2018-07-14] MEDS: TEMAZEPAM 7.5 MG CAPSULE PO PRN (20:38)
[2018-07-14] MEDS: INSULIN GLARGINE, 100 UNIT/ML CARTRIDGE SQ SCH (21:04)
--- NOTE | 2018-07-14 21:05 | NUR ---
07/14/2018: PATIENT REFUSED TO HAVE SNACKS, ATE VERY LITTLE, LANTUS 25 UNITS NOT ADMINISTERED.
[2018-07-14] MEDS: HOME MED MISCELLANEOUS PO SCH (21:06)
[2018-07-14] MEDS: ATORVASTATIN 10 MG TABLET PO SCH (21:07)
--- NOTE | 2018-07-14 23:33 | NUR ---
ACCUCHECK NOW 157 MG/DL, 2 UNITS REG. INSULIN SC ADMINISTERED.
[2018-07-15] MEDS: BLOOD SUGAR DIAGNOSTIC 1 EACH STRIP IN SCH ×3 (06:04→16:57)
[2018-07-15] MEDS: INSULIN REGULAR, HUMAN 100 UNIT/ML 3 ML VIAL SQ PRN ×3 (06:08→17:33)
[2018-07-15] MEDS: NATEGLINIDE 60 MG TABLET PO SCH ×3 (08:07→16:56)
[2018-07-15] MEDS: DOCUSATE SODIUM 100 MG CAPSULE PO SCH ×2 (08:07→16:16)
[2018-07-15] MEDS: PIOGLITAZONE HCL 15 MG TABLET PO SCH (08:07)
[2018-07-15] MEDS: FLUOXETINE HCL 20 MG CAPSULE PO SCH (08:08)
[2018-07-15] MEDS: METFORMIN 500 MG TABLET PO SCH ×2 (08:08→16:16)
[2018-07-15] MEDS: LOSARTAN POTASSIUM 25 MG TABLET PO SCH ×2 (08:08→16:16)
[2018-07-15] MEDS: METOPROLOL SUCCINATE 25 MG TAB.SR.24H PO SCH ×2 (08:33→16:17)
[2018-07-15] MEDS: CLOZARIL 100 MG PO SCH ×2 (08:34→12:27)
[2018-07-15 09:23] VITALS: BP 117/74
--- NOTE | 2018-07-15 12:39 | NUR ---
VERNA called the pt's sister, Ni ([phone]), and informed her that the pt is being discharged tomorrow to [facility] at 11AM so that she can handle the medications like she wanted to.
--- NOTE | 2018-07-15 13:05 | NUR ---
GPS/RN BS 237, ADMINISTERED 8 UNITS REGULAR INSULIN. WILL CONTINUE TO MONITOR.
--- NOTE | 2018-07-15 13:27 | NUR ---
VERNA contacted Omaira ([phone]) from [facility] and confirmed that the pt is still accepted to the facility.
[2018-07-15 16:48] VITALS: BP 127/68
--- NOTE | 2018-07-15 17:37 | NUR ---
GPS/RN BS 196, 4 UNITS ADMINISTERED PER SLIDING SCALE. WILL CONTINUE TO MONITOR.
[2018-07-15 20:43] VITALS: BP 142/75
[2018-07-15] MEDS: HOME MED MISCELLANEOUS PO SCH (21:09)
[2018-07-15] MEDS: ATORVASTATIN 10 MG TABLET PO SCH (21:10)
[2018-07-15] MEDS: INSULIN GLARGINE, 100 UNIT/ML CARTRIDGE SQ SCH (21:16)
--- NOTE | 2018-07-16 00:30 | NUR ---
GPS RN NOTES, UPON ATTEMPTING TO CHECK BLOOD SUGAR LEVEL PATIENT REFUSED, STATES THAT I ALREADY CHECK BLOOD SUGAR, EXPLAIN TO PATIENT THAT HE HAS ACCUCHECK ALSO A MIDNIGHT, SILL REFUSED, EXPLAIN RISKS AND BENEFITS 3X, STILL REFUSED, WILL CONTINUE TO MONITOR CLOSELY.
[2018-07-16] MEDS: BLOOD SUGAR DIAGNOSTIC 1 EACH STRIP IN SCH ×3 (05:48→11:59)
[2018-07-16] MEDS: INSULIN REGULAR, HUMAN 100 UNIT/ML 3 ML VIAL SQ PRN ×2 (05:50→12:02)
[2018-07-16 08:00] VITALS: BP 116/65
[2018-07-16] MEDS: NATEGLINIDE 60 MG TABLET PO SCH ×2 (08:32→12:05)
[2018-07-16] MEDS: PIOGLITAZONE HCL 15 MG TABLET PO SCH (08:33)
[2018-07-16] MEDS: DOCUSATE SODIUM 100 MG CAPSULE PO SCH (08:34)
[2018-07-16] MEDS: METFORMIN 500 MG TABLET PO SCH (08:34)
[2018-07-16] MEDS: FLUOXETINE HCL 20 MG CAPSULE PO SCH (08:34)
[2018-07-16] MEDS: METOPROLOL SUCCINATE 25 MG TAB.SR.24H PO SCH (08:35)
[2018-07-16 08:36] VITALS: BP 116/65
[2018-07-16] MEDS: LOSARTAN POTASSIUM 25 MG TABLET PO SCH (08:36)
[2018-07-16] MEDS: CLOZARIL 100 MG PO SCH ×2 (08:38→12:06)
[2018-07-16] MEDS: LORAZEPAM 0.5 MG TABLET PO PRN ×2 (10:02→11:09)
--- NOTE | 2018-07-16 10:09 | NUR ---
VERNA called the pt's sister, Ni ([phone]), and informed her that the pt is discharging at 3pm.
--- NOTE | 2018-07-16 15:30 | NUR ---
[id number]: PT IS 57 YEARS OLD MALE ADMITTED ON 5149 FOR DTS, GD, DISCHARGE TO [facility] ([facility] LOCATED AT [address] [place] [id number] ([phone]) IN STABLE CONDITION. COMPLAINT WITH MEDICATIONS, COOPERATIVE WITH TREATMENT PLANS. PT DENIES SI/HI AND INSTRUCTED TO GO TO THE CLOSEST ER IF DEVELOPING SI/HI. BEHAVIOR IMPROVED, PSYCHIATRIC TX PLANS MET, MEDICAL TX PLANS DEFERRED FOR CONTINUAL MONITORING. EDUCATED PERSONAL BELONGINGS TO PT. MEDICATIONS RECONCILED WITH DR. CÁRDENAS AND NUT DEHYDRATOR OPERATOR AURELIO. REPORT GIVEN TO GERMAN RANDOLPH IN [facility]. PT REFUSED TO SIGN DISCHARGE PAPERWORK. PT REFUSED SKIN ASSESSMENT. PT LEFT THE UNIT VIA AMBULANCE
--- NOTE | 2018-07-16 16:24 | NUR ---
Discharge Note: Pt was discharged to [facility] ([facility]) located at [address] [place] [address]; ([phone]). Pt was transported via [facility] (Trip #[id number]) at 3PM. Pts sister, Ni ([phone]), was informed of this discharge and approved of it. Upon discharge, the pt was in a dysphoric mood with a calm affect. Pt refused to talk to the community mental health social worker and was cooperative with the discharge. Pt shook his head when asked if he had any suicidal or homicidal ideation as well as when he was asked about visual and auditory hallucinations. Pt will be under the care of his psychiatrist, Dr. Madrid ([id number] [facility] [address] [facility], [address] [place] [address]; and his senior grant writer, Dr. Murguia, located at [address] [place] [address]; .
== END 2018-07-16 15:30 | DRG 885 ==
LOC: ER 02:13 → GPS 05:23
PROVIDERS: ADMIT Psychiatry & Neurology Psychosomatic Medicine; ATTEND Internal Medicine
DX: F25.1 Schizoaffective disorder, depressive type (principal); N17.0 Acute kidney failure with tubular necrosis; N18.9 Chronic kidney disease, unspecified; E11.65 Type 2 diabetes mellitus with hyperglycemia; F23 Brief psychotic disorder; E87.1 Hypo-osmolality and hyponatremia; R47.01 Aphasia; E78.5 Hyperlipidemia, unspecified; E86.1 Hypovolemia; F41.9 Anxiety disorder, unspecified; F32.9 Major depressive disorder, single episode, unspecified; I12.9 Hypertensive chronic kidney disease with stage 1 through stage 4 chronic kidney disease, or unspecified chronic kidney disease; E11.22 Type 2 diabetes mellitus with diabetic chronic kidney disease
CPT/HCPCS: 36415; 80048-TC; 80053-TC; 80061-TC; 80076-TC; 81000-TC; 82962-TC; 85025-TC; 87081-TC; 87086-TC; A4606; G0480; J1815; Z7610

== ENCOUNTER 2020-08-14 10:34 | Inpatient (IN) | payer MEDICARE, OTHER ==
[~2020-08-14] VITALS: Ht 177.8 cm; Wt 89.4 kg
[~2020-08-14 10:34] MED LIST changes: +BUPR150T5 PO; -CHOL10002 PO; +CHOL200026 PO; -CLOZ100T PO; +CLOZ100T32 PO; +DOCU100C36 PO; +INSU100V27 SQ; -LOSA25TA13 PO; +LOSA25TA27 PO; -MELO-105 PO; +METO25TA4 PO; -METO25TA6 PO; +MULT-754 PO; +PANT40TA49 PO; +PIOG30TA10 PO; -PIOG45TA5 PO
--- NOTE | 2020-08-14 10:40 | NUR ---
BIB SISTER C/O AGITATION AND BIZARRE BEHAVIOR "HE BECAME AGGRESSIVE TOWARD STAFF AND BANGING HIS HEAD", TO ER BED 12, HOOKED TO MONITOR, CHANGED TO HOSP GOWN, WARM BLANKLET PROVIDED, PATIENT AAO x 4, BREATHING EVEN AND IUNLABORE, AWAITING MD MITCHELL.
--- NOTE | 2020-08-14 10:44 | NUR ---
SEEN AND EXAMINED BY .
[2020-08-14 11:16] LABS: BASOPHILS % (AUTO) 0.5 % (0.0-2.0); HEMATOCRIT 40 % (39-51); HEMOGLOBIN 12.9 g/dL (13.5-17.5); LYMPHOCYTES # (AUTO) 2.1 /CMM (0.8-4.8); LYMPHOCYTES % (AUTO) 20.5 % (20.0-44.0); MEAN CORPUSCULAR HGB CONC 33 g/dl (31.0-36.0); MEAN CORPUSCULAR VOLUME 84 fL (80-96); MONOCYTES # (AUTO) 0.8 /CMM (0.1-1.30); MONOCYTES % (AUTO) 8.3 % (2.0-12.0); NEUTROPHILS # (AUTO) 7.1 /CMM (1.8-8.9); NEUTROPHILS % (AUTO) 70.7 % (43.0-81.0); PLATELET COUNT (AUTO) 253 /CMM (150-450); RED BLOOD CELL COUNT(AUTO) 4.74 MIL/uL (4.5-6.0); WHITE BLOOD COUNT (AUTO) 10.1 K/uL (4.3-11.0)
--- NOTE | 2020-08-14 11:16 | NUR ---
COVID SWAB DONE AND SENT TO LAB
[2020-08-14 11:18] LABS: CALCIUM, SERUM 8.9 mg/dL (8.5-10.1); CARBON DIOXIDE 22 mmol/L (21-32); CHLORIDE 103 mmol/L (98-107); GLUCOSE 254 mg/dL (74-106); POTASSIUM 3.3 mmol/L (3.5-5.1); SODIUM SERUM 141 mmol/L (136-145); UREA NITROGEN, BLOOD 12 mg/dL (7-18)
[2020-08-14 11:24] LABS: ALANINE AMINOTRANSFERASE 17 U/L (12-78); ALBUMIN 3.4 g/dL (3.4-5.0); ALCOHOL, BLOOD < 3 mg/dL (0-0); ALKALINE PHOSPHATASE 88 U/L (46-116); ASPARTATE AMINOTRANSFERASE 14 U/L (15-37); BILIRUBIN,DIRECT 0.1 mg/dL (0.0-0.2); BILIRUBIN,TOTAL 0.3 mg/dL (0.2-1.0); TOTAL PROTEIN, SERUM 7.5 g/dL (6.4-8.2)
[2020-08-14 11:27] LABS: ACETAMINOPHEN 0 ug/ml (10-30)
--- NOTE | 2020-08-14 13:00 | NUR ---
Pt medically cleared for psych. Message left w/Jessie TACKING MACHINE OPERATOR/PET
--- NOTE | 2020-08-14 15:24 | NUR ---
BLACK RN AT BEDSIDE FOR PSYCH EVAL
--- NOTE | 2020-08-14 15:37 | NUR ---
Accepted to room: 214-A
--- NOTE | 2020-08-14 16:19 | NUR ---
REPORT GIVEN TO TOMASA SMITH FOR GINNY.
[2020-08-14] MEDS ORDERED: METF-442 PO (16:56)
[2020-08-14] MEDS ORDERED: PANT40TA49 PO (16:56)
[2020-08-14] MEDS ORDERED: METO25TA4 PO (16:56)
[2020-08-14] MEDS ORDERED: PIOG30TA10 PO (16:56)
[2020-08-14] MEDS ORDERED: ROPI0.255 PO (16:56)
[2020-08-14] MEDS ORDERED: CHOL200010 PO (16:56)
[2020-08-14] MEDS ORDERED: QUET25TA PO (16:56)
[2020-08-14] MEDS ORDERED: IBUP-1953 PO (16:56)
[2020-08-14] MEDS ORDERED: DOCU-141 PO (16:56)
[2020-08-14] MEDS ORDERED: ESCI20TA PO (16:56)
[2020-08-14] MEDS ORDERED: NATE120T6 PO (16:56)
[2020-08-14] MEDS ORDERED: ATOR20TA PO (16:56)
[2020-08-14] MEDS ORDERED: INSU100V7 SQ ×2 (16:56)
[2020-08-14] MEDS ORDERED: DULA1.5P SQ (16:56)
[2020-08-14] MEDS ORDERED: LOPE2CAP40 PO (16:56)
--- NOTE | 2020-08-14 18:17 | NUR ---
PT BEING TRANSPORTED TO UNIT ON WHEELCHAIR. NAD NOTED. PT IS IN STABLE CONDITION FOR TRANSPORT.
[2020-08-14] MEDS ORDERED: MAGNESIUM HYDROXIDE 30 ML UDC PO PRN (18:30)
[2020-08-14] MEDS ORDERED: ACETAMINOPHEN 325 MG TABLET PO PRN (18:30)
[2020-08-14] MEDS ORDERED: MAG HYDROX/AL HYDROX/SIMETH 30 ML UDC PO PRN (18:30)
[2020-08-14] MEDS ORDERED: TEMAZEPAM 7.5 MG CAPSULE PO PRN (18:30)
[2020-08-14] MEDS ORDERED: LORAZEPAM 0.5 MG TABLET PO PRN (18:30)
--- NOTE | 2020-08-14 20:01 | NUR ---
GPS-LABORER ROAD NOTE: ADMITTED A 59-YR OLD FEMALE, [facility]. ADMITTED ON A 5150 FOR DTS, GD. PER HOLD, PT HAS BEEN HAVING SUICIDAL THOUGHTS AND WAS BANGING HIS HEAD ON FLOOR, HAS SLEPT FOR ONLY 2 DAYS IN THE PAST WEEK, AGITATED AND AGGRESSIVE IN ASSISTED LIVING. UPON FACE TO FACE ASSESSMENT, PATIENT IS A/O X 3, FLAT AFFECT, DEPRESSED, WITHDRAWN, ISOLATIVE, QUIET, AMBULATORY STEADY GAIT. PT WAS ADVISED OF HIS HOLD. PT'S RIGHTS HANDBOOK GIVEN. IN NO APPARENT DISTRESS NOTED. PT BELONGINGS WERE INVENTORIED AND CHECKED FOR CONTRABAND. PT. IS UNDER THE PSYCHIATRIC CARE OF DR. CÁRDENAS ORDERS OBTAINED AND [facility]. SKIN BODY ASSESSMENT REFUSED. BED LOCKED AND PLACED IN LOWEST POSITION TO MAINTAIN SAFETY. FALL PRECAUTIONS IMPLEMENTED. WILL CONTINUE TO MONITOR Q15 MIN ROUNDS FOR SAFETY AND BEHAVIOR.
[2020-08-14 20:29] VITALS: BP 153/84
[2020-08-14] MEDS ORDERED: BLOOD SUGAR DIAGNOSTIC 1 EACH STRIP IN ONE (20:30)
[2020-08-14 21:48] VITALS: BP 153/84
--- NOTE | 2020-08-14 23:23 | NUR ---
GPS RN NOTE: CALLED EPIC DR. QUIGLEY REGARDING POTASSIUM LEVEL OF 3.3 AND BLOOD SUGAR OF 255 DURING ADMISSION AND ORDERED KDUR 40 MEQ PO AND TO RESTART LONG ACTING INSULIN. SLIDING SCALE WAS ORDERED. NOTED AND CARRIED OUT.
[2020-08-14] MEDS ORDERED: IBUPROFEN 400 MG TABLET PO PRN (23:30)
[2020-08-14] MEDS ORDERED: DEXTROSE 50%-WATER 50 ML DISP.SYRIN IV PRN (23:30)
[2020-08-14] MEDS ORDERED: POTASSIUM CHLORIDE 20 MEQ TAB.PRT.SR PO ONE (23:30)
[2020-08-15] MEDS ORDERED: INSULIN GLARGINE, 100 UNIT/ML CARTRIDGE SQ ONE
--- NOTE | 2020-08-15 00:24 | NUR ---
GPS RN NOTE: RETOOK BLOOD SUGAR: 226 AND ADMINISTERED LANTUS 9 UNITS ONE TIME. WILL CONTINUE TO MONITOR
[2020-08-15 07:47] LABS: ALBUMIN 3.4 g/dL (3.4-5.0); BILIRUBIN,TOTAL 0.3 mg/dL (0.2-1.0); CALCIUM, SERUM 9.1 mg/dL (8.5-10.1); CREATININE 0.8 mg/dL (0.6-1.3); POTASSIUM 4.1 mmol/L (3.5-5.1); TOTAL PROTEIN, SERUM 7.6 g/dL (6.4-8.2)
[2020-08-15 08:00] VITALS: BP 140/78
[2020-08-15] MEDS: METFORMIN 500 MG TABLET PO SCH ×2 (08:00→17:37)
[2020-08-15] MEDS: BLOOD SUGAR DIAGNOSTIC 1 EACH STRIP IN SCH ×4 (08:14→22:08)
[2020-08-15] MEDS: INSULIN REGULAR, HUMAN 100 UNIT/ML 3 ML VIAL SQ PRN ×4 (08:15→22:14)
[2020-08-15] MEDS: PANTOPRAZOLE 40 MG TABLET.DR PO SCH (09:01)
[2020-08-15] MEDS: DOCUSATE SODIUM 100 MG CAPSULE PO SCH ×2 (09:01→17:37)
[2020-08-15] MEDS: CHOLECALCIFEROL 1,000 UNIT TABLET (VIT D3) PO SCH (09:01)
[2020-08-15] MEDS: METOPROLOL SUCCINATE 25 MG TAB.SR.24H PO SCH (09:02)
[2020-08-15] MEDS: INSULIN GLARGINE, 100 UNIT/ML CARTRIDGE SQ SCH ×2 (09:03→22:12)
[2020-08-15] MEDS: DIVALPROEX SODIUM 250 MG TABLET.DR PO SCH ×2 (13:50→17:37)
[2020-08-15 16:00] VITALS: BP 123/74
--- NOTE | 2020-08-15 17:37 | NUR ---
RN-CO: MADE A A FOLLOW UP APPOINTMENT TO RESP DEPT REGARDING EKG ORDER, SPOKE TO GINGER HILARIO
[2020-08-15 20:00] VITALS: BP 140/83
[2020-08-15] MEDS: CLOZARIL 100 MG PO SCH ×2 (21:00→21:59)
[2020-08-15] MEDS ORDERED: CLOZARIL 100 MG PO SCH (21:00)
[2020-08-15] MEDS: ATORVASTATIN 10 MG TABLET PO SCH (22:00)
[2020-08-16] MEDS: INSULIN REGULAR, HUMAN 100 UNIT/ML 3 ML VIAL SQ PRN ×4 (06:55→21:41)
[2020-08-16] MEDS: BLOOD SUGAR DIAGNOSTIC 1 EACH STRIP IN SCH ×4 (07:02→21:41)
[2020-08-16 08:00] VITALS: BP 126/68
[2020-08-16] MEDS: CHOLECALCIFEROL 1,000 UNIT TABLET (VIT D3) PO SCH (08:00)
[2020-08-16] MEDS: DOCUSATE SODIUM 100 MG CAPSULE PO SCH ×2 (08:00→17:15)
[2020-08-16] MEDS: METFORMIN 500 MG TABLET PO SCH ×2 (08:00→17:15)
[2020-08-16] MEDS: PANTOPRAZOLE 40 MG TABLET.DR PO SCH (08:00)
[2020-08-16] MEDS: DIVALPROEX SODIUM 250 MG TABLET.DR PO SCH ×3 (08:00→17:15)
[2020-08-16] MEDS: METOPROLOL SUCCINATE 25 MG TAB.SR.24H PO SCH (08:01)
[2020-08-16] MEDS: INSULIN GLARGINE, 100 UNIT/ML CARTRIDGE SQ SCH ×2 (08:07→21:40)
--- NOTE | 2020-08-16 09:00 | NUR ---
RN NOTE- PT ALERT ORIENTED TO PERSON, CONFUSED, WITHDRAWN ISOLATIVE AND GUARDED. PT IS MED COMPLIANT W NO SWALLOWING ISSUES PREVIOUSLY REPORTED. SWALLOW EVAL DONE THIS MORNING. PO INTAKE GOOD, NO BEHAVIORAL ISSUES PRESENT
--- NOTE | 2020-08-16 14:31 | NUR ---
Family Contact: VERNA called the pts sister, Ni ([phone]), and was unable to leave a message due to a busy dial tone.
--- NOTE | 2020-08-16 14:31 | NUR ---
Initial Discharge Plan: Pt currently resides at [facility] located at [address] [place] [address]; ([phone]). Per pt, he was unable to state where he would like to go at the time of discharge. SW will work with the pt and the MD regarding appropriate discharge planning. SW will form a safe and proper discharge.
--- NOTE | 2020-08-16 14:33 | NUR ---
Fdc Contact: SW called [facility] ([phone]) and was unable to speak to anyone due to receiving a fax dial tone.
--- NOTE | 2020-08-16 15:03 | NUR ---
Group Note: SW encouraged the pt to attend group therapy on 08/16/20 at 2pm on the topic of suicidal ideation. Pt refused to speak and shook his head when the SW encouraged him to participate. When SW attempted an individual session the pt refused to speak as well. Pt was deemed inappropriate for group/individual at this time.
[2020-08-16 16:00] VITALS: BP 120/71
[2020-08-16] MEDS: ARIPIPRAZOLE 5 MG TABLET PO SCH (17:15)
[2020-08-16 19:57] VITALS: BP 124/76
[2020-08-16] MEDS: CLOZARIL 100 MG PO SCH (21:41)
[2020-08-16] MEDS: ATORVASTATIN 10 MG TABLET PO SCH (21:42)
[2020-08-16] MEDS ORDERED: INSULIN GLARGINE, 100 UNIT/ML CARTRIDGE SQ SCH (22:00)
[2020-08-17] MEDS: BLOOD SUGAR DIAGNOSTIC 1 EACH STRIP IN SCH ×4 (06:31→21:34)
[2020-08-17] MEDS: INSULIN REGULAR, HUMAN 100 UNIT/ML 3 ML VIAL SQ PRN ×4 (06:32→21:38)
[2020-08-17 08:00] VITALS: BP 149/91
[2020-08-17] MEDS: DOCUSATE SODIUM 100 MG CAPSULE PO SCH ×2 (08:23→17:09)
[2020-08-17] MEDS: CHOLECALCIFEROL 1,000 UNIT TABLET (VIT D3) PO SCH (08:23)
[2020-08-17] MEDS: DIVALPROEX SODIUM 250 MG TABLET.DR PO SCH ×3 (08:23→17:09)
[2020-08-17] MEDS: ARIPIPRAZOLE 5 MG TABLET PO SCH ×2 (08:23→17:09)
[2020-08-17] MEDS: METFORMIN 500 MG TABLET PO SCH ×2 (08:23→17:09)
[2020-08-17] MEDS: METOPROLOL SUCCINATE 25 MG TAB.SR.24H PO SCH (08:23)
[2020-08-17] MEDS: PANTOPRAZOLE 40 MG TABLET.DR PO SCH (08:25)
[2020-08-17] MEDS: INSULIN GLARGINE, 100 UNIT/ML CARTRIDGE SQ SCH ×2 (08:44→21:36)
--- NOTE | 2020-08-17 09:00 | NUR ---
rn note- NO CHANGES, DR CÁRDENAS SAW PT BEFORE LUNCH. PT IS ALERT QUIET WITHDRAWN ISOLATIVE W FLAT AFFECT CURRENTLY DENIES SI HI AH VH. MED COMPLIANT.
--- NOTE | 2020-08-17 11:48 | NUR ---
Family Contact: VERNA called the pts sister, Ni ([phone]), and informed her about the pts current behaviors. She stated that once the pt is stable she would like the [facility] to [facility] the [facility].
[2020-08-17] MEDS ORDERED: FLUOXETINE HCL 20 MG/5 ML UDC PO SCH (13:00)
[2020-08-17] MEDS: Fluoxetine 10 mg capsule PO SCH (13:48)
[2020-08-17 16:00] VITALS: BP 108/70
[2020-08-17 19:58] VITALS: BP 132/76
[2020-08-17] MEDS: CLOZARIL 100 MG PO SCH (20:39)
[2020-08-17] MEDS: ATORVASTATIN 10 MG TABLET PO SCH (21:39)
[2020-08-18 08:00] VITALS: BP 153/83
[2020-08-18] MEDS: BLOOD SUGAR DIAGNOSTIC 1 EACH STRIP IN SCH ×4 (08:45→21:32)
[2020-08-18] MEDS: DOCUSATE SODIUM 100 MG CAPSULE PO SCH ×2 (09:00→16:49)
[2020-08-18] MEDS: ARIPIPRAZOLE 5 MG TABLET PO SCH ×2 (09:02→16:49)
[2020-08-18] MEDS: METOPROLOL SUCCINATE 25 MG TAB.SR.24H PO SCH (09:02)
[2020-08-18] MEDS: DIVALPROEX SODIUM 250 MG TABLET.DR PO SCH ×3 (09:03→16:49)
[2020-08-18] MEDS: PANTOPRAZOLE 40 MG TABLET.DR PO SCH (09:03)
[2020-08-18] MEDS: METFORMIN 500 MG TABLET PO SCH ×2 (09:03→17:12)
[2020-08-18] MEDS: CHOLECALCIFEROL 1,000 UNIT TABLET (VIT D3) PO SCH (09:03)
[2020-08-18] MEDS: INSULIN REGULAR, HUMAN 100 UNIT/ML 3 ML VIAL SQ PRN ×4 (09:12→21:37)
[2020-08-18] MEDS: INSULIN GLARGINE, 100 UNIT/ML CARTRIDGE SQ SCH ×2 (09:14→21:38)
--- NOTE | 2020-08-18 11:13 | NUR ---
Intermediate Contact: [facility] called [facility] ([phone]) and was unable to speak to anyone due to receiving a fax dial tone.
--- NOTE | 2020-08-18 12:29 | NUR ---
Group Note: SW encouraged the pt to attend group therapy on 08/18/20 on treatment goals. Pt refused to talk to the SW and would only communicate with head movements. Pt also refuses to leave his room and has been isolative. SW deemed this pt inappropriate for group and individual therapy.
[2020-08-18] MEDS: Fluoxetine 10 mg capsule PO SCH (12:52)
[2020-08-18 16:00] VITALS: BP 132/81
[2020-08-18 19:56] VITALS: BP 130/73
[2020-08-18] MEDS: CLOZARIL 100 MG PO SCH (21:13)
[2020-08-18] MEDS: ATORVASTATIN 10 MG TABLET PO SCH (21:14)
[2020-08-19] MEDS ORDERED: PANTOPRAZOLE 40 MG TABLET.DR PO SCH (07:30)
[2020-08-19] MEDS: BLOOD SUGAR DIAGNOSTIC 1 EACH STRIP IN SCH ×4 (07:40→21:07)
[2020-08-19] MEDS: CHOLECALCIFEROL 1,000 UNIT TABLET (VIT D3) PO SCH (08:02)
[2020-08-19] MEDS: METFORMIN 500 MG TABLET PO SCH ×2 (08:02→17:30)
[2020-08-19] MEDS: DIVALPROEX SODIUM 250 MG TABLET.DR PO SCH ×3 (08:02→16:25)
[2020-08-19] MEDS: METOPROLOL SUCCINATE 25 MG TAB.SR.24H PO SCH (08:02)
[2020-08-19] MEDS: DOCUSATE SODIUM 100 MG CAPSULE PO SCH ×2 (08:02→16:25)
[2020-08-19] MEDS: ARIPIPRAZOLE 5 MG TABLET PO SCH ×3 (08:02→16:25)
[2020-08-19] MEDS: PANTOPRAZOLE 40 MG TABLET.DR PO SCH (08:07)
[2020-08-19] MEDS: INSULIN REGULAR, HUMAN 100 UNIT/ML 3 ML VIAL SQ PRN ×4 (08:07→21:20)
[2020-08-19] MEDS: INSULIN GLARGINE, 100 UNIT/ML CARTRIDGE SQ SCH ×2 (08:10→21:21)
[2020-08-19 08:35] VITALS: BP 129/67
[2020-08-19] MEDS: Fluoxetine 10 mg capsule PO SCH (12:15)
--- NOTE | 2020-08-19 15:01 | NUR ---
GPS/RN-NOTES PT. BS WAS 200MG/DL,EARLIER 3 UNITS OF REGULAR INSULIN JUST ADMINISTERED DUE TO PATIENT JUST ATE LUNCH.
--- NOTE | 2020-08-19 15:56 | NUR ---
Custodial Contact: SW called [facility] ([phone]) and was unable to speak to anyone due to receiving a fax dial tone.
--- NOTE | 2020-08-19 15:56 | NUR ---
Family Contact: SW called the pts sister, Ni ([phone]), and informed her that the SW is having a difficult time contacting [facility]. She stated that she spoke to the pts caregiver at the facility who confirmed that the pt can return to the facility as the pts sister just turned in another months rent. She provided the SW with the clinical business manager contact information and SW stated that she will contact her.
--- NOTE | 2020-08-19 15:59 | NUR ---
Fpc Clerk Checker Contact: VERNA contacted Chantale ([phone]), Clerk Checker, who confirmed that the pt can return to the facility.
[2020-08-19 16:08] VITALS: BP 128/83
--- NOTE | 2020-08-19 16:24 | NUR ---
Group Note: SW encouraged the pt to attend group therapy on 08/19/20 on discharge planning. Pt refused to speak with the SW and presented with a flat affect. SW informed him that he will be returning to [facility] sometime next week.
[2020-08-19 20:12] VITALS: BP 132/75
[2020-08-19] MEDS: CLOZARIL 100 MG PO SCH (20:53)
[2020-08-19] MEDS: ATORVASTATIN 10 MG TABLET PO SCH (21:07)
[2020-08-20 06:35] LABS: BASOPHILS % (AUTO) 0.6 % (0.0-2.0); HEMATOCRIT 39 % (39-51); HEMOGLOBIN 12.4 g/dL (13.5-17.5); LYMPHOCYTES # (AUTO) 2.1 /CMM (0.8-4.8); LYMPHOCYTES % (AUTO) 29.7 % (20.0-44.0); MEAN CORPUSCULAR HGB CONC 32 g/dl (31.0-36.0); MEAN CORPUSCULAR VOLUME 85 fL (80-96); MONOCYTES # (AUTO) 0.7 /CMM (0.1-1.30); MONOCYTES % (AUTO) 9.7 % (2.0-12.0); NEUTROPHILS # (AUTO) 4.3 /CMM (1.8-8.9); PLATELET COUNT (AUTO) 235 /CMM (150-450); RED BLOOD CELL COUNT(AUTO) 4.58 MIL/uL (4.5-6.0); WHITE BLOOD COUNT (AUTO) 7.1 K/uL (4.3-11.0)
[2020-08-20 07:12] LABS: ALBUMIN 3.1 g/dL (3.4-5.0); BILIRUBIN,TOTAL 0.3 mg/dL (0.2-1.0); CALCIUM, SERUM 8.8 mg/dL (8.5-10.1); TOTAL PROTEIN, SERUM 6.9 g/dL (6.4-8.2)
[2020-08-20] MEDS: BLOOD SUGAR DIAGNOSTIC 1 EACH STRIP IN SCH ×4 (07:32→21:22)
[2020-08-20 07:42] VITALS: BP 129/71
[2020-08-20] MEDS: INSULIN REGULAR, HUMAN 100 UNIT/ML 3 ML VIAL SQ PRN ×4 (08:05→23:13)
[2020-08-20] MEDS: INSULIN GLARGINE, 100 UNIT/ML CARTRIDGE SQ SCH ×2 (08:06→21:21)
[2020-08-20] MEDS: METFORMIN 500 MG TABLET PO SCH ×2 (08:27→17:19)
[2020-08-20] MEDS: PANTOPRAZOLE 40 MG TABLET.DR PO SCH (08:28)
[2020-08-20] MEDS: DOCUSATE SODIUM 100 MG CAPSULE PO SCH ×2 (08:28→16:09)
[2020-08-20] MEDS: CHOLECALCIFEROL 1,000 UNIT TABLET (VIT D3) PO SCH (08:28)
[2020-08-20] MEDS: DIVALPROEX SODIUM 250 MG TABLET.DR PO SCH ×3 (08:29→16:09)
[2020-08-20] MEDS: ARIPIPRAZOLE 5 MG TABLET PO SCH ×3 (08:29→16:09)
[2020-08-20] MEDS: METOPROLOL SUCCINATE 25 MG TAB.SR.24H PO SCH (08:29)
[2020-08-20] MEDS: CARVEDILOL 12.5 MG TABLET PO SCH ×2 (10:18→21:07)
[2020-08-20] MEDS: Fluoxetine 10 mg capsule PO SCH (12:30)
--- NOTE | 2020-08-20 15:13 | NUR ---
GROUP NOTE: SW encouraged pt to attend group on this day. Pt was laying in bed and refused to attend stating "I want to sleep." SW attempted to engage pt in conversation and pt did not respond thereafter to SW verbal cues.
[2020-08-20 16:45] VITALS: BP 130/80
[2020-08-20 20:26] VITALS: BP 125/74
[2020-08-20] MEDS: CLOZARIL 100 MG PO SCH (21:06)
[2020-08-20] MEDS: ATORVASTATIN 10 MG TABLET PO SCH (21:22)
--- NOTE | 2020-08-21 06:31 | NUR ---
GPS RN NOTES: PT. RESTING IN HIS ROOM, PT.REMAINED STABLE THROUGHOUT SHIFT, NO S/S OF DISTRESS NOTED , ALL CARE NEEDS MET ANTICIPATED. MED COMPLIANT ,WILL CONTINUE TO MONITOR FOR SAFETY BEHAVIOR, AND ENDORSE TO AM SHIFT FOR CONTINUITY OF CARE.
[2020-08-21 06:49] LABS: BASOPHILS % (AUTO) 0.7 % (0.0-2.0); HEMATOCRIT 39 % (39-51); HEMOGLOBIN 12.6 g/dL (13.5-17.5); LYMPHOCYTES # (AUTO) 2.2 /CMM (0.8-4.8); LYMPHOCYTES % (AUTO) 32.7 % (20.0-44.0); MEAN CORPUSCULAR HGB CONC 33 g/dl (31.0-36.0); MEAN CORPUSCULAR VOLUME 84 fL (80-96); MONOCYTES # (AUTO) 0.7 /CMM (0.1-1.30); MONOCYTES % (AUTO) 9.7 % (2.0-12.0); NEUTROPHILS # (AUTO) 3.8 /CMM (1.8-8.9); NEUTROPHILS % (AUTO) 56.9 % (43.0-81.0); PLATELET COUNT (AUTO) 230 /CMM (150-450); WHITE BLOOD COUNT (AUTO) 6.8 K/uL (4.3-11.0)
[2020-08-21] MEDS: BLOOD SUGAR DIAGNOSTIC 1 EACH STRIP IN SCH ×4 (07:39→21:20)
[2020-08-21] MEDS: INSULIN REGULAR, HUMAN 100 UNIT/ML 3 ML VIAL SQ PRN ×4 (08:09→21:22)
[2020-08-21] MEDS: INSULIN GLARGINE, 100 UNIT/ML CARTRIDGE SQ SCH ×2 (08:16→21:24)
[2020-08-21] MEDS: ARIPIPRAZOLE 5 MG TABLET PO SCH ×3 (08:25→16:27)
[2020-08-21] MEDS: DIVALPROEX SODIUM 250 MG TABLET.DR PO SCH ×3 (08:25→16:27)
[2020-08-21] MEDS: CHOLECALCIFEROL 1,000 UNIT TABLET (VIT D3) PO SCH (08:26)
[2020-08-21] MEDS: METFORMIN 500 MG TABLET PO SCH ×2 (08:26→17:30)
[2020-08-21] MEDS: PANTOPRAZOLE 40 MG TABLET.DR PO SCH (08:26)
[2020-08-21] MEDS: DOCUSATE SODIUM 100 MG CAPSULE PO SCH ×2 (08:26→16:27)
[2020-08-21 08:27] VITALS: BP 145/71
[2020-08-21] MEDS: CARVEDILOL 12.5 MG TABLET PO SCH ×2 (08:27→21:05)
[2020-08-21] MEDS: Fluoxetine 10 mg capsule PO SCH (12:31)
[2020-08-21 16:02] VITALS: BP 139/71
[2020-08-21 20:13] VITALS: BP 126/61
[2020-08-21] MEDS: CLOZARIL 100 MG PO SCH (21:05)
[2020-08-21] MEDS: ATORVASTATIN 10 MG TABLET PO SCH (21:05)
[2020-08-22] MEDS: BLOOD SUGAR DIAGNOSTIC 1 EACH STRIP IN SCH ×4 (07:32→21:22)
[2020-08-22] MEDS: INSULIN REGULAR, HUMAN 100 UNIT/ML 3 ML VIAL SQ PRN ×4 (07:37→21:31)
[2020-08-22 08:00] VITALS: BP 156/89
[2020-08-22] MEDS: PANTOPRAZOLE 40 MG TABLET.DR PO SCH (08:04)
[2020-08-22] MEDS: CHOLECALCIFEROL 1,000 UNIT TABLET (VIT D3) PO SCH (08:04)
[2020-08-22] MEDS: METFORMIN 500 MG TABLET PO SCH ×2 (08:05→17:09)
[2020-08-22] MEDS: DOCUSATE SODIUM 100 MG CAPSULE PO SCH ×2 (08:05→17:09)
[2020-08-22] MEDS: ARIPIPRAZOLE 5 MG TABLET PO SCH ×3 (08:05→17:09)
[2020-08-22] MEDS: DIVALPROEX SODIUM 250 MG TABLET.DR PO SCH ×3 (08:05→17:09)
[2020-08-22] MEDS: CARVEDILOL 12.5 MG TABLET PO SCH ×2 (08:06→21:08)
[2020-08-22] MEDS: INSULIN GLARGINE, 100 UNIT/ML CARTRIDGE SQ SCH ×2 (08:17→22:25)
--- NOTE | 2020-08-22 11:39 | NUR ---
RN NOTE: DR. CARRILLO AT BEDSIDE. BLOOD SUGAR LEVELS REVIEWED. DR. CARRILLO TO INCREASE LANTUS IN AM TO 20 UNITS
[2020-08-22] MEDS: Fluoxetine 10 mg capsule PO SCH (12:02)
[2020-08-22 16:00] VITALS: BP 153/87
[2020-08-22 19:58] VITALS: BP 134/84
[2020-08-22] MEDS: CLOZARIL 100 MG PO SCH (21:12)
[2020-08-22] MEDS: ATORVASTATIN 10 MG TABLET PO SCH (21:56)
--- NOTE | 2020-08-23 06:52 | NUR ---
GPS RN NOTE: URINE SPECIMEN COLLECTED URINE SPECIMEN COLLECTED, CALLED LAB & INFORMED ABOUT URINE SPECIMEN TO BE PICKED UP.
[2020-08-23] MEDS: BLOOD SUGAR DIAGNOSTIC 1 EACH STRIP IN SCH ×4 (07:27→21:52)
[2020-08-23] MEDS: INSULIN REGULAR, HUMAN 100 UNIT/ML 3 ML VIAL SQ PRN ×4 (07:31→21:56)
[2020-08-23] MEDS: DIVALPROEX SODIUM 250 MG TABLET.DR PO SCH ×3 (08:06→17:00)
[2020-08-23] MEDS: CHOLECALCIFEROL 1,000 UNIT TABLET (VIT D3) PO SCH (08:06)
[2020-08-23] MEDS: DOCUSATE SODIUM 100 MG CAPSULE PO SCH ×2 (08:06→17:00)
[2020-08-23] MEDS: METFORMIN 500 MG TABLET PO SCH ×2 (08:06→17:00)
[2020-08-23] MEDS: PANTOPRAZOLE 40 MG TABLET.DR PO SCH (08:06)
[2020-08-23] MEDS: ARIPIPRAZOLE 5 MG TABLET PO SCH ×3 (08:06→17:00)
[2020-08-23] MEDS: CARVEDILOL 12.5 MG TABLET PO SCH ×2 (08:07→21:39)
[2020-08-23 08:11] VITALS: BP 129/85
[2020-08-23] MEDS: INSULIN GLARGINE, 100 UNIT/ML CARTRIDGE SQ SCH ×2 (08:47→21:55)
[2020-08-23 10:12] LABS: BILIRUBIN,URINE NEGATIVE (NEGATIVE); BLOOD, URINE SMALL Ery/uL (NEGATIVE); COLOR,URINE DARK YELLOW (YELLOW); LEUKOCYTE ESTERASE ,URINE NEGATIVE (NEGATIVE); NITRITE, URINE POSITIVE (NEGATIVE); PROTEIN,URINE TRACE mg/dl (NEGATIVE); UGLUCOSE 500 MG/DL mg/dL (NEGATIVE); UROBILINOGEN,URINE 0.2 EU/dL (0.2)
[2020-08-23 10:35] LABS: BACTERIA,URINE Many /HPF (None Seen); SQUAMOUS EPITHELIAL CELL,UR Rare /HPF (None Seen); WBC,URINE 0-2 /HPF (0-3)
--- NOTE | 2020-08-23 11:19 | NUR ---
RN NOTE: DR. CARRILLO IN TO ASSESS PT. NOTIFIED OF UA RESULTS
[2020-08-23] MEDS: Fluoxetine 10 mg capsule PO SCH (12:44)
[2020-08-23 16:07] VITALS: BP 137/78
[2020-08-23 19:50] VITALS: BP 126/77
[2020-08-23] MEDS: ATORVASTATIN 10 MG TABLET PO SCH (21:38)
[2020-08-23] MEDS: CLOZARIL 100 MG PO SCH (21:38)
--- NOTE | 2020-08-24 06:51 | NUR ---
GPS RN CLOSING NOTE: PT IS CURRENTLY LAYING ON BED SLEEPING. SLEPT 7.5HR THIS SHIFT. NO BEHAVIORAL ISSUES THIS SHIFT. NO S/S OF DISTRESS. RESPIRATION EVEN AND UNLABORED WITH EQUAL RISE AND FALL OF THE CHEST ON ROOM AIR. ALL PT CARE NEEDS MET ANTICIPATED. BED IS LOCKED AND IN LOWEST POSITION. WILL CONTINUE TO MONITOR AND ENDORSE TO AM SHIFT.
[2020-08-24] MEDS: BLOOD SUGAR DIAGNOSTIC 1 EACH STRIP IN SCH ×4 (07:28→21:27)
[2020-08-24] MEDS: INSULIN REGULAR, HUMAN 100 UNIT/ML 3 ML VIAL SQ PRN ×4 (07:36→21:25)
[2020-08-24 07:40] LABS: BASOPHILS # (AUTO) 0.1 /CMM (0.0-0.2); BASOPHILS % (AUTO) 0.9 % (0.0-2.0); HEMATOCRIT 41 % (39-51); HEMOGLOBIN 13.2 g/dL (13.5-17.5); LYMPHOCYTES # (AUTO) 2.5 /CMM (0.8-4.8); LYMPHOCYTES % (AUTO) 31.8 % (20.0-44.0); MEAN CORPUSCULAR HGB CONC 32 g/dl (31.0-36.0); MEAN CORPUSCULAR VOLUME 85 fL (80-96); MONOCYTES # (AUTO) 0.7 /CMM (0.1-1.30); MONOCYTES % (AUTO) 9.3 % (2.0-12.0); NEUTROPHILS # (AUTO) 4.6 /CMM (1.8-8.9); PLATELET COUNT (AUTO) 246 /CMM (150-450); RED BLOOD CELL COUNT(AUTO) 4.85 MIL/uL (4.5-6.0); WHITE BLOOD COUNT (AUTO) 7.9 K/uL (4.3-11.0)
[2020-08-24 08:00] VITALS: BP 113/57
[2020-08-24 08:11] LABS: ALBUMIN 3.4 g/dL (3.4-5.0); BILIRUBIN,TOTAL 0.2 mg/dL (0.2-1.0); CALCIUM, SERUM 9.2 mg/dL (8.5-10.1); CREATININE 0.9 mg/dL (0.6-1.3); POTASSIUM 3.9 mmol/L (3.5-5.1); TOTAL PROTEIN, SERUM 7.5 g/dL (6.4-8.2)
[2020-08-24] MEDS: CHOLECALCIFEROL 1,000 UNIT TABLET (VIT D3) PO SCH (08:21)
[2020-08-24] MEDS: DOCUSATE SODIUM 100 MG CAPSULE PO SCH ×2 (08:21→17:05)
[2020-08-24] MEDS: PANTOPRAZOLE 40 MG TABLET.DR PO SCH (08:21)
[2020-08-24] MEDS: METFORMIN 500 MG TABLET PO SCH ×2 (08:22→18:42)
[2020-08-24] MEDS: ARIPIPRAZOLE 5 MG TABLET PO SCH ×3 (08:22→17:04)
[2020-08-24] MEDS: CARVEDILOL 12.5 MG TABLET PO SCH ×2 (08:22→21:17)
[2020-08-24] MEDS: DIVALPROEX SODIUM 250 MG TABLET.DR PO SCH ×2 (08:22→12:32)
[2020-08-24] MEDS: INSULIN GLARGINE, 100 UNIT/ML CARTRIDGE SQ SCH ×2 (08:29→21:27)
--- NOTE | 2020-08-24 09:00 | NUR ---
RN NOTE- PT ALERT CONFUSED WITHDRAWN MONOSYLLABIC ANSWERS TO [facility] CONTACT MNIMAL INITIATION MED COMPLIANT PO INTAKE GOOD ENCOURAGED SELF CARE GROOMING AND ACTIVITY
--- NOTE | 2020-08-24 10:35 | NUR ---
RN NOTE- DR MATHEWS ON UNIT, ASSESSED PT, DISCUSSED ACCU-CHECKS AND BLOOD GLUCOSE. ORDERED LANTUS QHS DOSE TO BE INCREASED TO 25U. DULY NOTED. COMPLIED.
[2020-08-24] MEDS: Fluoxetine 10 mg capsule PO SCH (12:32)
--- NOTE | 2020-08-24 14:35 | NUR ---
Individual Intervention: This group underwriter met with pt to conduct brief counseling and discuss presenting problem SI. Pt appeared withdrawn in his bed. Pt stated he no longer feels SI. However, pt mentioned "his body hurts" and was constantly repeating "my body hurts". This group underwriter was unable to conducting brief counseling at this moment. This group underwriter also encouraged peer interaction.
[2020-08-24 16:00] VITALS: BP 122/69
[2020-08-24] MEDS: DIVALPROEX SODIUM 500 MG TABLET.DR PO SCH (17:04)
[2020-08-24 20:00] VITALS: BP 164/78
[2020-08-24] MEDS: CLOZARIL 100 MG PO SCH (21:17)
[2020-08-24] MEDS: ATORVASTATIN 10 MG TABLET PO SCH (21:17)
[2020-08-24 21:53] VITALS: BP 144/80
[2020-08-25] MEDS: BLOOD SUGAR DIAGNOSTIC 1 EACH STRIP IN SCH ×4 (06:30→21:39)
[2020-08-25] MEDS: INSULIN REGULAR, HUMAN 100 UNIT/ML 3 ML VIAL SQ PRN ×5 (06:31→21:50)
[2020-08-25 08:00] VITALS: BP 122/79
[2020-08-25] MEDS: INSULIN GLARGINE, 100 UNIT/ML CARTRIDGE SQ SCH ×2 (08:49→21:48)
[2020-08-25] MEDS: ARIPIPRAZOLE 5 MG TABLET PO SCH ×3 (08:50→16:28)
[2020-08-25] MEDS: METFORMIN 500 MG TABLET PO SCH ×2 (08:51→17:13)
[2020-08-25] MEDS: DOCUSATE SODIUM 100 MG CAPSULE PO SCH ×2 (08:51→16:27)
[2020-08-25] MEDS: DIVALPROEX SODIUM 250 MG TABLET.DR PO SCH ×2 (08:51→12:17)
[2020-08-25] MEDS: CARVEDILOL 12.5 MG TABLET PO SCH ×2 (08:51→21:10)
[2020-08-25] MEDS: PANTOPRAZOLE 40 MG TABLET.DR PO SCH (08:51)
[2020-08-25] MEDS: CHOLECALCIFEROL 1,000 UNIT TABLET (VIT D3) PO SCH (08:51)
[2020-08-25] MEDS: Fluoxetine 10 mg capsule PO SCH (12:17)
[2020-08-25 16:00] VITALS: BP 146/71
[2020-08-25] MEDS: DIVALPROEX SODIUM 500 MG TABLET.DR PO SCH (16:27)
[2020-08-25 19:40] VITALS: BP 137/79
[2020-08-25] MEDS: CEPHALEXIN MONOHYDRATE 500 MG CAPSULE PO SCH (21:10)
[2020-08-25] MEDS: CLOZARIL 100 MG PO SCH (21:11)
[2020-08-25] MEDS: ATORVASTATIN 10 MG TABLET PO SCH (21:43)
--- NOTE | 2020-08-26 06:58 | NUR ---
GPS RN CLOSING NOTE: PT IS CURRENTLY SLEEPING. SLEPT 7HR THIS SHIFT. NO BEHAVIORAL ISSUES THIS SHIFT. NO S/S OF DISTRESS. RESPIRATION EVEN AND UNLABORED WITH EQUAL RISE AND FALL OF THE CHEST ON ROOM AIR. ALL PT CARE NEEDS MET ANTICIPATED. BED IS LOCKED AND IN LOWEST POSITION. WILL CONTINUE TO MONITOR AND ENDORSE TO AM SHIFT.
[2020-08-26 08:00] VITALS: BP 143/79
[2020-08-26] MEDS: BLOOD SUGAR DIAGNOSTIC 1 EACH STRIP IN SCH ×4 (08:28→21:34)
[2020-08-26] MEDS: DIVALPROEX SODIUM 250 MG TABLET.DR PO SCH ×2 (08:29→12:40)
[2020-08-26] MEDS: METFORMIN 500 MG TABLET PO SCH ×2 (08:29→17:10)
[2020-08-26] MEDS: DOCUSATE SODIUM 100 MG CAPSULE PO SCH ×2 (08:29→16:39)
[2020-08-26] MEDS: ARIPIPRAZOLE 5 MG TABLET PO SCH ×3 (08:30→16:39)
[2020-08-26] MEDS: CEPHALEXIN MONOHYDRATE 500 MG CAPSULE PO SCH ×2 (08:30→21:15)
[2020-08-26] MEDS: CHOLECALCIFEROL 1,000 UNIT TABLET (VIT D3) PO SCH (08:30)
[2020-08-26] MEDS: PANTOPRAZOLE 40 MG TABLET.DR PO SCH (08:30)
[2020-08-26] MEDS: CARVEDILOL 12.5 MG TABLET PO SCH ×2 (08:31→21:15)
[2020-08-26] MEDS: INSULIN GLARGINE, 100 UNIT/ML CARTRIDGE SQ SCH ×2 (08:33→21:36)
[2020-08-26] MEDS: INSULIN REGULAR, HUMAN 100 UNIT/ML 3 ML VIAL SQ PRN ×4 (08:34→21:51)
--- NOTE | 2020-08-26 09:42 | NUR ---
Mcc Chrome Cleaner Contact: VERNA contacted Chantale ([phone]), Chrome Cleaner, and left a voicemail informing patient will be ready for discharge Sunday. Waiting for a call back.
--- NOTE | 2020-08-26 09:43 | NUR ---
Family Contact: VERNA called the pts sister, Ni ([phone]) and discussed discharge plan on Sunday. Ni stated she will pick remover the patient at 1PM. Ni had additional questions regarding clothing and medication she had initially brought to the hospital. VERNA transferred her call to the nursing station.
[2020-08-26] MEDS: Fluoxetine 10 mg capsule PO SCH (12:40)
[2020-08-26 16:00] VITALS: BP 137/79
[2020-08-26] MEDS: DIVALPROEX SODIUM 500 MG TABLET.DR PO SCH (16:39)
[2020-08-26] MEDS: CLOZARIL 100 MG PO SCH (21:15)
[2020-08-26] MEDS: ATORVASTATIN 10 MG TABLET PO SCH (21:48)
[2020-08-26 22:54] VITALS: BP 147/80
[2020-08-27] MEDS: INSULIN REGULAR, HUMAN 100 UNIT/ML 3 ML VIAL SQ PRN ×4 (07:41→22:53)
[2020-08-27] MEDS: BLOOD SUGAR DIAGNOSTIC 1 EACH STRIP IN SCH ×4 (07:50→21:46)
[2020-08-27] MEDS: CHOLECALCIFEROL 1,000 UNIT TABLET (VIT D3) PO SCH (08:43)
[2020-08-27] MEDS: DIVALPROEX SODIUM 250 MG TABLET.DR PO SCH ×2 (08:43→12:41)
[2020-08-27] MEDS: PANTOPRAZOLE 40 MG TABLET.DR PO SCH (08:43)
[2020-08-27] MEDS: METFORMIN 500 MG TABLET PO SCH ×2 (08:43→17:42)
[2020-08-27] MEDS: ARIPIPRAZOLE 5 MG TABLET PO SCH ×3 (08:43→16:32)
[2020-08-27] MEDS: CEPHALEXIN MONOHYDRATE 500 MG CAPSULE PO SCH ×2 (08:43→20:28)
[2020-08-27] MEDS: DOCUSATE SODIUM 100 MG CAPSULE PO SCH ×2 (08:43→16:32)
[2020-08-27] MEDS: CARVEDILOL 12.5 MG TABLET PO SCH ×2 (08:44→20:28)
[2020-08-27 08:49] VITALS: BP 125/62
[2020-08-27] MEDS: INSULIN GLARGINE, 100 UNIT/ML CARTRIDGE SQ SCH ×2 (08:52→21:46)
--- NOTE | 2020-08-27 09:00 | NUR ---
RN NOTE- PATIENT LAYING IN BED AWAKE,ALERT,GUARDED DENYING ALL THIS MORNING MED COMPLIANT A BIT MORE INTERACTIVE AND ENGAGING GOOD EYE CONTACT SOME SMILING AND POSITIVE EXPRESSION
[2020-08-27] MEDS: Fluoxetine 10 mg capsule PO SCH (12:41)
--- NOTE | 2020-08-27 14:51 | NUR ---
COORDINATION OF CARE: Patient will be following up with his psychiatrist Dr. Ary Liu at [facility] [address] [facility] [address], [place] [address] ([phone]). SW left a voicemail for the psychiatrist regarding appointment. Pts sister, Ni stated that the doctor is aware and will follow up post discharge. Patient will be following up with his primary care physician Dr. Ruben Johansen located at [id number] [place] [address] [address] [address] ([phone]). SW left voicemail for follow up appointment.
--- NOTE | 2020-08-27 15:59 | NUR ---
COORDINATION OF CARE: SW received a call back from patient's outpatient psychiatrist Dr. Ary Liu at [address], [place], [place] [address] ( ) who provided her follow up appointment scheduled on September 01, 2020 at 10AM. This neonatal social worker also faxed per request the patient's clinicals.
[2020-08-27 16:13] VITALS: BP 139/73
[2020-08-27] MEDS: DIVALPROEX SODIUM 500 MG TABLET.DR PO SCH (16:32)
[2020-08-27 20:04] VITALS: BP 144/77
[2020-08-27] MEDS: CLOZARIL 100 MG PO SCH (20:28)
[2020-08-27] MEDS: ATORVASTATIN 10 MG TABLET PO SCH (21:05)
[2020-08-28 07:16] LABS: BASOPHILS % (AUTO) 0.5 % (0.0-2.0); HEMATOCRIT 38 % (39-51); HEMOGLOBIN 11.9 g/dL (13.5-17.5); LYMPHOCYTES # (AUTO) 2.1 /CMM (0.8-4.8); LYMPHOCYTES % (AUTO) 31.9 % (20.0-44.0); MEAN CORPUSCULAR HGB CONC 32 g/dl (31.0-36.0); MEAN CORPUSCULAR VOLUME 85 fL (80-96); MONOCYTES # (AUTO) 0.8 /CMM (0.1-1.30); MONOCYTES % (AUTO) 11.7 % (2.0-12.0); NEUTROPHILS # (AUTO) 3.7 /CMM (1.8-8.9); NEUTROPHILS % (AUTO) 55.9 % (43.0-81.0); PLATELET COUNT (AUTO) 230 /CMM (150-450); RED BLOOD CELL COUNT(AUTO) 4.39 MIL/uL (4.5-6.0); WHITE BLOOD COUNT (AUTO) 6.7 K/uL (4.3-11.0)
[2020-08-28] MEDS: INSULIN REGULAR, HUMAN 100 UNIT/ML 3 ML VIAL SQ PRN ×4 (07:29→22:22)
[2020-08-28] MEDS: BLOOD SUGAR DIAGNOSTIC 1 EACH STRIP IN SCH ×4 (07:32→22:12)
[2020-08-28 08:00] VITALS: BP 120/65
[2020-08-28] MEDS: METFORMIN 500 MG TABLET PO SCH ×2 (08:02→17:14)
[2020-08-28] MEDS: CEPHALEXIN MONOHYDRATE 500 MG CAPSULE PO SCH ×2 (08:02→21:40)
[2020-08-28] MEDS: DIVALPROEX SODIUM 250 MG TABLET.DR PO SCH ×2 (08:02→12:09)
[2020-08-28] MEDS: ARIPIPRAZOLE 5 MG TABLET PO SCH ×3 (08:02→16:07)
[2020-08-28] MEDS: DOCUSATE SODIUM 100 MG CAPSULE PO SCH ×2 (08:02→16:07)
[2020-08-28] MEDS: CHOLECALCIFEROL 1,000 UNIT TABLET (VIT D3) PO SCH (08:02)
[2020-08-28] MEDS: PANTOPRAZOLE 40 MG TABLET.DR PO SCH (08:02)
[2020-08-28 08:05] LABS: ALBUMIN 2.9 g/dL (3.4-5.0); BILIRUBIN,TOTAL 0.2 mg/dL (0.2-1.0); CREATININE 0.8 mg/dL (0.6-1.3); POTASSIUM 4.2 mmol/L (3.5-5.1); TOTAL PROTEIN, SERUM 6.6 g/dL (6.4-8.2)
[2020-08-28] MEDS: CARVEDILOL 12.5 MG TABLET PO SCH ×2 (08:05→21:40)
[2020-08-28] MEDS: INSULIN GLARGINE, 100 UNIT/ML CARTRIDGE SQ SCH ×2 (08:10→22:22)
--- NOTE | 2020-08-28 09:00 | NUR ---
RN NOTE- PT IN BED, PO INTAKE GOOD, MED COMPLIANT ENGAGING INTERACTIVE SELECTIVELY, DENIES SI HI AH VH ENCOURAGED ADLS GROOMING
[2020-08-28] MEDS: Fluoxetine 10 mg capsule PO SCH (12:09)
[2020-08-28 16:00] VITALS: BP 137/70
[2020-08-28] MEDS: DIVALPROEX SODIUM 500 MG TABLET.DR PO SCH (16:07)
[2020-08-28 20:00] VITALS: BP 151/84
[2020-08-28] MEDS: CLOZARIL 100 MG PO SCH (21:40)
[2020-08-28] MEDS: ATORVASTATIN 10 MG TABLET PO SCH (21:41)
--- NOTE | 2020-08-29 06:47 | NUR ---
GPS RN CLOSING NOTE: PT IS CURRENTLY SLEEPING. SLEPT 8HRS THIS SHIFT. NO S/S OF DISTRESS. RESPIRATION EVEN AND UNLABORED WITH EQUAL RISE AND FALL OF THE CHEST ON ROOM AIR. ALL PT CARE NEEDS MET ANTICIPATED. BED IS LOCKED AND IN LOWEST POSITION. WILL CONTINUE TO MONITOR AND ENDORSE TO AM SHIFT.
[2020-08-29 08:00] VITALS: BP 153/85
[2020-08-29] MEDS: DIVALPROEX SODIUM 250 MG TABLET.DR PO SCH ×2 (08:00→13:06)
[2020-08-29] MEDS: METFORMIN 500 MG TABLET PO SCH ×2 (08:00→18:01)
[2020-08-29] MEDS: BLOOD SUGAR DIAGNOSTIC 1 EACH STRIP IN SCH ×4 (08:08→21:51)
[2020-08-29] MEDS: INSULIN REGULAR, HUMAN 100 UNIT/ML 3 ML VIAL SQ PRN ×4 (08:31→22:00)
[2020-08-29] MEDS: CHOLECALCIFEROL 1,000 UNIT TABLET (VIT D3) PO SCH (09:04)
[2020-08-29] MEDS: CEPHALEXIN MONOHYDRATE 500 MG CAPSULE PO SCH ×2 (09:04→20:44)
[2020-08-29] MEDS: DOCUSATE SODIUM 100 MG CAPSULE PO SCH ×2 (09:05→17:59)
[2020-08-29] MEDS: ARIPIPRAZOLE 5 MG TABLET PO SCH ×3 (09:05→17:59)
[2020-08-29] MEDS: CARVEDILOL 12.5 MG TABLET PO SCH ×2 (09:05→20:44)
[2020-08-29] MEDS: PANTOPRAZOLE 40 MG TABLET.DR PO SCH (09:05)
[2020-08-29] MEDS: INSULIN GLARGINE, 100 UNIT/ML CARTRIDGE SQ SCH ×2 (09:14→21:59)
[2020-08-29] MEDS: Fluoxetine 10 mg capsule PO SCH (13:06)
[2020-08-29 16:00] VITALS: BP 139/77
[2020-08-29] MEDS: DIVALPROEX SODIUM 500 MG TABLET.DR PO SCH (17:59)
[2020-08-29 20:31] VITALS: BP 148/78
[2020-08-29] MEDS: CLOZARIL 100 MG PO SCH (20:44)
[2020-08-29] MEDS: ATORVASTATIN 10 MG TABLET PO SCH (21:30)
--- NOTE | 2020-08-29 22:49 | NUR ---
GPS RN NOTE: PT NOTES AND MEDS WERE WRONGLY CHARTED UNDER ELISA'S ACCOUNT.
--- NOTE | 2020-08-30 06:39 | NUR ---
GPS RN CLOSING NOTE: PATIENT LAYING ON BED AWAKE, A/O X2. SLEPT 7HRS THIS SHIFT. WEEKLY SKIN ASSESSMENT DONE AND PICTURES PLACED IN PT. CHART. NO S/S OF DISTRESS. NO C/O PAIN THIS SHIFT. RESPIRATION EVEN AND UNLABORED WITH EQUAL RISE AND FALL OF THE CHEST ON ROOM AIR. ALL PT CARE NEEDS MET ANTICIPATED. BED IS LOCKED AND IN LOWEST POSITION. WILL CONTINUE TO MONITOR AND ENDORSE TO AM SHIFT.
[2020-08-30 08:00] VITALS: BP 125/67
[2020-08-30 08:05] VITALS: BP 125/67
[2020-08-30] MEDS: DIVALPROEX SODIUM 250 MG TABLET.DR PO SCH (08:05)
[2020-08-30] MEDS: METFORMIN 500 MG TABLET PO SCH (08:05)
[2020-08-30] MEDS: ARIPIPRAZOLE 5 MG TABLET PO SCH (08:05)
[2020-08-30] MEDS: CARVEDILOL 12.5 MG TABLET PO SCH (08:05)
[2020-08-30] MEDS: DOCUSATE SODIUM 100 MG CAPSULE PO SCH (08:05)
[2020-08-30] MEDS: PANTOPRAZOLE 40 MG TABLET.DR PO SCH (08:05)
[2020-08-30] MEDS: CHOLECALCIFEROL 1,000 UNIT TABLET (VIT D3) PO SCH (08:05)
[2020-08-30] MEDS: CEPHALEXIN MONOHYDRATE 500 MG CAPSULE PO SCH (08:06)
[2020-08-30] MEDS: INSULIN REGULAR, HUMAN 100 UNIT/ML 3 ML VIAL SQ PRN ×2 (08:14→11:35)
[2020-08-30] MEDS: BLOOD SUGAR DIAGNOSTIC 1 EACH STRIP IN SCH ×2 (08:14→11:32)
[2020-08-30] MEDS: INSULIN GLARGINE, 100 UNIT/ML CARTRIDGE SQ SCH (08:16)
--- NOTE | 2020-08-30 09:19 | NUR ---
DISCHARGE NOTE: Pt will be discharged at 1:00pm via private vehicle to [address] [address] ([phone]). Patients sister, Ni ([phone]) is aware and agreeable with discharge plan and will be providing transportation for the patient. grain merchandising manager, Chantale ([phone]) is made aware and is agreeable with discharge plan. Patient is aware and agreeable with discharge plan. Patient denies suicidal or homicidal ideation. Patient presents with appropriate mood and congruent affect. Patient will be following up with his psychiatrist Dr. Ary Liu at [facility] [id number] [place] [address] [address], [place], [place] [address] ( ) and has a follow up appointment scheduled on September 01, 2020 at 10AM. Patient will be following up with his primary care physician Dr. Ruben Johansen located at [id number] [place] [address] [address] [address] ([phone]). SW left voicemail for follow up appointment. The multidisciplinary exit care form was done, printed, signed, and given to the patient.
--- NOTE | 2020-08-30 12:49 | NUR ---
rn notes patient to be discharge at this time. No SI. with belongings with him, nothing missing. All paper works signed.
== END 2020-08-30 13:00 | DRG 885 ==
LOC: ER 10:46 → GPS 18:15
PROVIDERS: ADMIT Psychiatry & Neurology Psychosomatic Medicine; ATTEND Nurse Practitioner Acute Care
DX: F25.0 Schizoaffective disorder, bipolar type (principal); E11.65 Type 2 diabetes mellitus with hyperglycemia; G93.41 Metabolic encephalopathy; N39.0 Urinary tract infection, site not specified; E46 Unspecified protein-calorie malnutrition; E87.6 Hypokalemia; E78.5 Hyperlipidemia, unspecified; I10 Essential (primary) hypertension; Z81.8 Family history of other mental and behavioral disorders; Z79.4 Long term (current) use of insulin; F29 Unspecified psychosis not due to a substance or known physiological condition; Z73.6 Limitation of activities due to disability; R00.0 Tachycardia, unspecified; E88.09 Other disorders of plasma-protein metabolism, not elsewhere classified; G47.00 Insomnia, unspecified; Z68.28 Body mass index [BMI] 28.0-28.9, adult
CPT/HCPCS: 36415; 80048-TC; 80053-TC; 80061-TC; 80076-TC; 80164-TC; 81001; 82962-TC; 85025-TC; 87081-TC; 87086-TC; 92526; 92611-TC; 93307-TC; C9803; G0480; J1815

== ENCOUNTER 2024-09-05 10:43 | Emergency (ER) | payer MEDICARE, OTHER ==
[~2024-09-05] VITALS: Ht 182.9 cm; Wt 89.8 kg
[~2024-09-05 10:43] MED LIST changes: -BUPR150T5 PO; +CHOL200010 PO; -CHOL200026 PO; +DOCU-141 PO; -DOCU100C36 PO; +ESCI20TA PO; +IBUP-1953 PO; -INSU100V27 SQ; +INSU100V7 SQ; -INSU300I SQ; +LOPE2CAP40 PO; -LOSA25TA27 PO; -METF-440 PO; +METF-442 PO; -MULT-754 PO; +QUET25TA PO; +ROPI0.255 PO
[2024-09-05] MEDS: IV NS 0.9% 1,000 ML BAG IV ONE (11:40)
[2024-09-05 11:42] LABS: BASOPHILS # (AUTO) 0.1 K/uL (0.0-0.2); HEMATOCRIT 40 % (39-51); HEMOGLOBIN 12.9 g/dL (13.5-17.5); LYMPHOCYTES # (AUTO) 1.9 K/uL (0.8-4.8); LYMPHOCYTES % (AUTO) 30.7 % (20.0-44.0); MEAN CORPUSCULAR HEMOGLOBIN 27 PG (26.0-33.0); MEAN CORPUSCULAR HGB CONC 32 g/dl (31.0-36.0); MEAN CORPUSCULAR VOLUME 84 fL (80-96); MONOCYTES # (AUTO) 0.5 K/uL (0.1-1.30); MONOCYTES % (AUTO) 8.7 % (2.0-12.0); NEUTROPHILS # (AUTO) 3.7 K/uL (1.8-8.9); NEUTROPHILS % (AUTO) 59.6 % (43.0-81.0); PLATELET COUNT (AUTO) 245 K/uL (150-450); RED BLOOD CELL COUNT(AUTO) 4.81 MIL/uL (4.5-6.0); RED CELL DISTRIBUTION WIDTH 18.3 % (11.5-15.0); WHITE BLOOD COUNT (AUTO) 6.3 K/uL (4.3-11.0)
[2024-09-05 12:06] LABS: CALCIUM, SERUM 9.1 mg/dL (8.5-10.1); CARBON DIOXIDE 29 mmol/L (21-32); CHLORIDE 105 mmol/L (98-107); CREATININE 0.7 mg/dL (0.6-1.3); GLUCOSE 180 mg/dL (74-106); POTASSIUM 4.6 mmol/L (3.5-5.1); SODIUM SERUM 140 mmol/L (136-145); UREA NITROGEN, BLOOD 18 mg/dL (7-18)
[2024-09-05 12:07] LABS: INR 1.03 (0.91-1.10); PARTIAL THROMBOPLASTIN TIME 40.1 SEC (24.3-34.3); PROTHROMBIN TIME 10.9 SECS (9.2-11.1)
[2024-09-05 12:18] LABS: LACTIC ACID 3.4 mmol/L (0.4-2.0)
[2024-09-05 12:20] LABS: ALANINE AMINOTRANSFERASE 21 U/L (12-78); ALBUMIN 3.5 g/dL (3.4-5.0); ALCOHOL, BLOOD < 3 mg/dL (0-10); ALKALINE PHOSPHATASE 68 U/L (46-116); ASPARTATE AMINOTRANSFERASE 22 U/L (15-37); BILIRUBIN,DIRECT 0.1 mg/dL (0.0-0.2); BILIRUBIN,TOTAL 0.2 mg/dL (0.2-1.0); TOTAL PROTEIN, SERUM 8.1 g/dL (6.4-8.2)
[2024-09-05 12:21] LABS: ACETAMINOPHEN <10 ug/ml (10-30); SALICYLATE 1.5 mg/dL (2.8-20.0)
[2024-09-05 13:18] LABS: APPEARANCE,URINE CLEAR (CLEAR); BILIRUBIN,URINE NEGATIVE (NEGATIVE); BLOOD, URINE TRACE-INTA Ery/uL (NEGATIVE); COLOR,URINE YELLOW (YELLOW); KETONES,URINE 1+ mg/dL (NEGATIVE); LEUKOCYTE ESTERASE ,URINE NEGATIVE (NEGATIVE); NITRITE, URINE NEGATIVE (NEGATIVE); PROTEIN,URINE NEGATIVE (NEGATIVE); UGLUCOSE 3+ mg/dL (NEGATIVE); UROBILINOGEN,URINE 0.2 EU/dL (0.2)
[2024-09-05] MEDS ORDERED: LOSA50TA39 PO (13:25)
[2024-09-05] MEDS ORDERED: METF-440 PO (13:25)
[2024-09-05] MEDS ORDERED: ARIP10TA57 PO (13:25)
[2024-09-05] MEDS ORDERED: CARV25TA2 PO (13:25)
[2024-09-05] MEDS ORDERED: CLOZ100T PO (13:25)
[2024-09-05] MEDS ORDERED: POLY17PO4 PO (13:25)
[2024-09-05] MEDS ORDERED: DIVA250T4 PO ×2 (13:25)
[2024-09-05] MEDS ORDERED: INSU100V3 SQ (13:25)
[2024-09-05] MEDS ORDERED: INSU100I24 SQ (13:25)
[2024-09-05] MEDS ORDERED: FLUO10CA29 PO (13:25)
[2024-09-05] MEDS ORDERED: EMPA25TA PO (13:25)
[2024-09-05] MEDS ORDERED: SEMA0.25 SQ (13:25)
[2024-09-05 13:31] LABS: AMPHETAMINE, URINE NEGATIVE (NEGATIVE); BARBITURATE, URINE NEGATIVE (NEGATIVE); BENZODIAZEPINE, URINE NEGATIVE (NEGATIVE); CANNABINOID, URINE NEGATIVE (NEGATIVE); COCCAINE, URINE NEGATIVE (NEGATIVE); OPIATE, URINE NEGATIVE (NEGATIVE); PHENCYCLIDINE SCREEN,URINE NEGATIVE (NEGATIVE)
[2024-09-05 13:41] LABS: SQUAMOUS EPITHELIAL CELL,UR Rare /HPF (None Seen)
[2024-09-05 13:42] LABS: ADD URINE CULTURE NO; BACTERIA,URINE Rare /HPF (None Seen); RBC,URINE 0-2 /HPF (0-2); YEAST,URINE Rare /HPF (None Seen)
[2024-09-05 15:05] VITALS: BP 135/86; TEMP 97.7; O2SAT 97
== END 2024-09-05 15:05 | disposition home or self-care (01) ==
LOC: ER 10:58 → TELE 13:20 → UNDOADMIN 13:20
DX: R53.1 Weakness (principal); E87.20 Acidosis, unspecified; R06.02 Shortness of breath; E11.65 Type 2 diabetes mellitus with hyperglycemia; E78.5 Hyperlipidemia, unspecified; E87.8 Other disorders of electrolyte and fluid balance, not elsewhere classified; R51.9 Headache, unspecified; F20.9 Schizophrenia, unspecified; I10 Essential (primary) hypertension; F17.200 Nicotine dependence, unspecified, uncomplicated; Z79.4 Long term (current) use of insulin; Z79.84 Long term (current) use of oral hypoglycemic drugs; Z79.899 Other long term (current) drug therapy; Z20.822 Contact with and (suspected) exposure to COVID-19
CPT/HCPCS: 99285; 96360; 93005; 87804 ×2; 71045; 70450; 85025; 80048; 87040; 87086; 83605 ×2; 80076; 81001; 36415; 84443; 84484; 85730; 82962; 87426; 80143; 80320; 80307; J7030; G0480

== ENCOUNTER 2024-11-27 13:43 | Inpatient (IN) | payer MEDICARE, OTHER ==
[~2024-11-27] VITALS: Ht 177.8 cm; Wt 92.5 kg
[~2024-11-27 13:43] MED LIST changes: +ARIP10TA57 PO; +CARV25TA2 PO; +CLOZ100T PO; -CLOZ100T32 PO; +DIVA250T4 PO; -DULA1.5P SQ; +EMPA25TA PO; -ESCI20TA PO; +FLUO10CA29 PO; +INSU100I24 SQ; +INSU100V3 SQ; -INSU100V7 SQ; +LOSA50TA39 PO; +METF-440 PO; -METF-442 PO; -METO25TA4 PO; -NATE120T6 PO; +POLY17PO4 PO; -QUET25TA PO; -ROPI0.255 PO; +SEMA0.25 SQ
[2024-11-27 15:08] LABS: BASOPHILS % (AUTO) 0.7 % (0.0-2.0); CALCIUM, SERUM 9.1 mg/dL (8.5-10.1); CARBON DIOXIDE 27 mmol/L (21-32); CHLORIDE 108 mmol/L (98-107); CREATININE 1.1 mg/dL (0.6-1.3); GLUCOSE 210 mg/dL (74-106); HEMATOCRIT 43 % (39-51); HEMOGLOBIN 13.7 g/dL (13.5-17.5); LYMPHOCYTES # (AUTO) 1.7 K/uL (0.8-4.8); LYMPHOCYTES % (AUTO) 26.2 % (20.0-44.0); MEAN CORPUSCULAR HEMOGLOBIN 27 PG (26.0-33.0); MEAN CORPUSCULAR HGB CONC 32 g/dl (31.0-36.0); MEAN CORPUSCULAR VOLUME 83 fL (80-96); MONOCYTES # (AUTO) 0.6 K/uL (0.1-1.30); NEUTROPHILS % (AUTO) 63.1 % (43.0-81.0); PLATELET COUNT (AUTO) 255 K/uL (150-450); POTASSIUM 4.3 mmol/L (3.5-5.1); RED BLOOD CELL COUNT(AUTO) 5.15 MIL/uL (4.5-6.0); RED CELL DISTRIBUTION WIDTH 17.5 % (11.5-15.0); SODIUM SERUM 145 mmol/L (136-145); UREA NITROGEN, BLOOD 14 mg/dL (7-18); WHITE BLOOD COUNT (AUTO) 6.4 K/uL (4.3-11.0)
[2024-11-27 15:15] LABS: ALANINE AMINOTRANSFERASE 19 U/L (12-78); ALBUMIN 3.3 g/dL (3.4-5.0); ALCOHOL, BLOOD < 3 mg/dL (0-10); ALKALINE PHOSPHATASE 68 U/L (46-116); ASPARTATE AMINOTRANSFERASE 14 U/L (15-37); BILIRUBIN,DIRECT 0.1 mg/dL (0.0-0.2); BILIRUBIN,TOTAL 0.2 mg/dL (0.2-1.0); TOTAL PROTEIN, SERUM 7.9 g/dL (6.4-8.2)
[2024-11-27 15:19] LABS: ACETAMINOPHEN <10 ug/ml (10-30); SALICYLATE 1.9 mg/dL (2.8-20.0)
[2024-11-27] MEDS ORDERED: KETO120S5 TP (15:20)
[2024-11-27] MEDS ORDERED: INSU300I SQ (15:20)
[2024-11-27] MEDS ORDERED: DEXTROSE 50%-WATER 50 ML DISP.SYRIN IV PRN (17:00)
[2024-11-27] MEDS: DOCUSATE SODIUM 100 MG CAPSULE PO SCH (17:00)
[2024-11-27] MEDS: METFORMIN 500 MG TABLET PO SCH (17:00)
[2024-11-27] MEDS: BLOOD SUGAR DIAGNOSTIC 1 EACH STRIP VI SCH (17:30)
[2024-11-27 17:31] LABS: APPEARANCE,URINE CLEAR (CLEAR); BILIRUBIN,URINE NEGATIVE (NEGATIVE); BLOOD, URINE NEGATIVE Ery/uL (NEGATIVE); COLOR,URINE YELLOW (YELLOW); KETONES,URINE 2+ mg/dL (NEGATIVE); LEUKOCYTE ESTERASE ,URINE NEGATIVE (NEGATIVE); NITRITE, URINE NEGATIVE (NEGATIVE); PROTEIN,URINE NEGATIVE (NEGATIVE); UGLUCOSE 3+ mg/dL (NEGATIVE); UROBILINOGEN,URINE 0.2 EU/dL (0.2)
[2024-11-27 17:44] LABS: AMPHETAMINE, URINE NEGATIVE (NEGATIVE); BARBITURATE, URINE NEGATIVE (NEGATIVE); BENZODIAZEPINE, URINE NEGATIVE (NEGATIVE); CANNABINOID, URINE NEGATIVE (NEGATIVE); COCCAINE, URINE NEGATIVE (NEGATIVE); OPIATE, URINE NEGATIVE (NEGATIVE); PHENCYCLIDINE SCREEN,URINE NEGATIVE (NEGATIVE)
[2024-11-27] MEDS: BLOOD SUGAR DIAGNOSTIC 1 EACH STRIP IN ONE (18:30)
[2024-11-27] MEDS ORDERED: TEMAZEPAM 7.5 MG CAPSULE PO PRN (18:30)
[2024-11-27] MEDS ORDERED: ACETAMINOPHEN 325 MG TABLET PO PRN (18:30)
[2024-11-27] MEDS ORDERED: MAGNESIUM HYDROXIDE 30 ML UDC PO PRN (18:30)
[2024-11-27] MEDS ORDERED: MAG HYDROX/AL HYDROX/SIMETH 30 ML UDC PO PRN (18:30)
[2024-11-27] MEDS ORDERED: LORAZEPAM 0.5 MG TABLET PO PRN (18:30)
[2024-11-27 18:38] LABS: RBC,URINE NONE SEEN /HPF (0-2); WBC,URINE 0-2 /HPF (0-3)
[2024-11-27 18:39] LABS: ADD URINE CULTURE NO; BACTERIA,URINE None seen /HPF (None Seen); SQUAMOUS EPITHELIAL CELL,UR Rare /HPF (None Seen)
[2024-11-27 20:00] VITALS: BP 157/86; TEMP 97.9; O2SAT 95
[2024-11-27] MEDS: *INSULIN REGULAR(HUMULIN R)HUM 100 UNIT/ML VIAL SQ PRN (21:29)
[2024-11-28 07:40] LABS: CREATININE 0.6 mg/dL (0.6-1.3)
[2024-11-28 07:42] LABS: ALBUMIN 2.9 g/dL (3.4-5.0); BILIRUBIN,TOTAL 0.3 mg/dL (0.2-1.0); CALCIUM, SERUM 8.7 mg/dL (8.5-10.1); CREATININE 0.6 mg/dL (0.6-1.3); POTASSIUM 3.8 mmol/L (3.5-5.1); TOTAL PROTEIN, SERUM 6.8 g/dL (6.4-8.2)
[2024-11-28 07:45] LABS: CHOLESTEROL 144 mg/dL (<200); HDL CHOLESTEROL 62 mg/dL (40-60); LDL 73 mg/dL (0-99); TRIGLYCERIDES 82 mg/dL (30-150)
[2024-11-28 08:00] VITALS: BP 157/89; TEMP 97.8; O2SAT 95
[2024-11-28] MEDS: CARVEDILOL 12.5 MG TABLET PO SCH (08:41)
[2024-11-28] MEDS: EMPAGLIFLOZIN 25 MG TABLET PO SCH (08:41)
[2024-11-28] MEDS: PANTOPRAZOLE 40 MG TABLET.DR PO SCH (08:41)
[2024-11-28] MEDS: PIOGLITAZONE HCL 15 MG TABLET PO SCH (09:36)
[2024-11-28] MEDS: IBUPROFEN 400 MG TABLET PO PRN (10:39)
[2024-11-28 16:00] VITALS: BP 139/86; TEMP 97.9; O2SAT 98
[2024-11-28] MEDS: FLUOXETINE HCL 20 MG CAPSULE PO SCH (16:01)
[2024-11-28] MEDS: DIVALPROEX SODIUM 250 MG TABLET.DR PO SCH (16:10)
[2024-11-28 16:29] LABS: LACTIC ACID 1.1 mmol/L (0.4-2.0)
[2024-11-28 21:25] VITALS: BP 150/81; TEMP 98.1; O2SAT 98
[2024-11-28] MEDS: DIVALPROEX SODIUM 500 MG TABLET.DR PO SCH (21:44)
[2024-11-28] MEDS: CLOZAPINE 100 MG TABLET PO SCH (21:44)
[2024-11-28] MEDS: INSULIN REGULAR, HUMAN 100 UNIT/ML 3 ML VIAL SQ PRN (22:55)
[2024-11-29 08:00] VITALS: BP 158/89; TEMP 98.6; O2SAT 97
[2024-11-29] MEDS: POLYETHYLENE GLYCOL 3350 17 GM POWD.PACK PO PRN (09:46)
[2024-11-29] MEDS: ASPIRIN 81 MG TAB.CHEW PO SCH (10:30)
[2024-11-29 16:00] VITALS: BP 129/83; TEMP 98; O2SAT 98
[2024-11-29 20:47] VITALS: BP 136/83; TEMP 98; O2SAT 96
[2024-11-29] MEDS: ATORVASTATIN 40 MG TABLET PO SCH (21:23)
[2024-11-30 08:05] VITALS: BP 129/78; TEMP 97.8; O2SAT 97
[2024-11-30] MEDS: DIVALPROEX SODIUM 500 MG TABLET.DR PO SCH (08:28)
[2024-11-30] MEDS ORDERED: ARIPIPRAZOLE 5 MG TABLET PO SCH (09:00)
[2024-11-30 16:16] VITALS: BP 131/71; TEMP 98.2; O2SAT 94
[2024-11-30 20:24] VITALS: BP 132/75; TEMP 98.1; O2SAT 95
[2024-12-01 08:00] VITALS: BP 143/96; TEMP 97.7; O2SAT 96
[2024-12-01] MEDS: ARIPIPRAZOLE 5 MG TABLET PO SCH (09:16)
[2024-12-01 16:00] VITALS: BP 130/79; TEMP 97.8; O2SAT 96
[2024-12-01 21:31] VITALS: BP 140/90; TEMP 97.9; O2SAT 95
[2024-12-02 08:00] VITALS: BP 135/82; TEMP 97.8; O2SAT 94
[2024-12-02] MEDS: ARIPIPRAZOLE 5 MG TABLET PO SCH (14:06)
[2024-12-02 16:10] VITALS: BP 143/93; TEMP 97.9; O2SAT 98
[2024-12-02 20:41] VITALS: BP 138/71; TEMP 98.9; O2SAT 91
[2024-12-03 08:00] VITALS: BP 147/85; TEMP 98.1; O2SAT 95
[2024-12-03 16:00] VITALS: BP 108/59; TEMP 98.4; O2SAT 95
[2024-12-03] MEDS: ARIPIPRAZOLE 5 MG TABLET PO SCH (16:25)
[2024-12-03 21:19] VITALS: BP 124/69; TEMP 98.1; O2SAT 95
[2024-12-04 04:11] VITALS: BP 124/69; TEMP 98.1; O2SAT 95
[2024-12-04 07:26] LABS: BASOPHILS % (AUTO) 0.5 % (0.0-2.0); HEMATOCRIT 37 % (39-51); HEMOGLOBIN 11.9 g/dL (13.5-17.5); LYMPHOCYTES # (AUTO) 2.1 K/uL (0.8-4.8); LYMPHOCYTES % (AUTO) 35.4 % (20.0-44.0); MEAN CORPUSCULAR HEMOGLOBIN 27 PG (26.0-33.0); MEAN CORPUSCULAR HGB CONC 32 g/dl (31.0-36.0); MEAN CORPUSCULAR VOLUME 83 fL (80-96); MONOCYTES # (AUTO) 0.6 K/uL (0.1-1.30); MONOCYTES % (AUTO) 9.3 % (2.0-12.0); NEUTROPHILS # (AUTO) 3.3 K/uL (1.8-8.9); NEUTROPHILS % (AUTO) 54.8 % (43.0-81.0); PLATELET COUNT (AUTO) 197 K/uL (150-450); RED BLOOD CELL COUNT(AUTO) 4.48 MIL/uL (4.5-6.0); RED CELL DISTRIBUTION WIDTH 17.8 % (11.5-15.0)
[2024-12-04 08:00] VITALS: BP 111/62; TEMP 98; O2SAT 96
[2024-12-04 16:00] VITALS: BP 132/88; TEMP 98.6; O2SAT 95
[2024-12-04 20:46] VITALS: BP 116/79; TEMP 98.4; O2SAT 95
[2024-12-05 08:00] VITALS: BP 122/83; TEMP 98.6; O2SAT 95
[2024-12-05 16:00] VITALS: BP 138/75; TEMP 97.5; O2SAT 96
[2024-12-05 21:00] VITALS: BP 117/53; TEMP 98.2; O2SAT 95
[2024-12-06 08:00] VITALS: BP 130/79; TEMP 98; O2SAT 98
[2024-12-06 16:00] VITALS: BP 108/65; TEMP 97.5; O2SAT 100
[2024-12-06 20:34] VITALS: BP 108/56; TEMP 97.4; O2SAT 96
[2024-12-07 08:34] VITALS: BP 150/86; TEMP 98.6; O2SAT 95
[2024-12-07 16:21] VITALS: BP 134/84; TEMP 98.6; O2SAT 94
[2024-12-07 21:22] VITALS: BP 140/72; TEMP 98.4; O2SAT 95
[2024-12-08 06:56] LABS: BILIRUBIN,TOTAL 0.5 mg/dL (0.2-1.0); CALCIUM, SERUM 9.2 mg/dL (8.5-10.1); CREATININE 0.7 mg/dL (0.6-1.3); POTASSIUM 4.4 mmol/L (3.5-5.1); TOTAL PROTEIN, SERUM 7.1 g/dL (6.4-8.2)
[2024-12-08 08:00] VITALS: BP 147/86; TEMP 97.8; O2SAT 98
[2024-12-08 08:08] VITALS: BP 147/86
== END 2024-12-08 12:00 | disposition home or self-care (01) | DRG 885 ==
LOC: ER 13:46 → GPS 17:28
PROVIDERS: ADMIT Nurse Practitioner Psychiatric/Mental Health; ATTEND Internal Medicine
DX: F25.0 Schizoaffective disorder, bipolar type (principal); E11.65 Type 2 diabetes mellitus with hyperglycemia; E46 Unspecified protein-calorie malnutrition; E87.20 Acidosis, unspecified; R45.851 Suicidal ideations; F29 Unspecified psychosis not due to a substance or known physiological condition; I10 Essential (primary) hypertension; E78.5 Hyperlipidemia, unspecified; E11.9 Type 2 diabetes mellitus without complications; Z79.899 Other long term (current) drug therapy; Z79.4 Long term (current) use of insulin; Z79.84 Long term (current) use of oral hypoglycemic drugs; Z91.81 History of falling; Z73.6 Limitation of activities due to disability; R53.1 Weakness; R27.8 Other lack of coordination; G31.84 Mild cognitive impairment of uncertain or unknown etiology; F41.9 Anxiety disorder, unspecified; F32.A Depression, unspecified; Z86.73 Personal history of transient ischemic attack (TIA), and cerebral infarction without residual deficits; Z86.59 Personal history of other mental and behavioral disorders
CPT/HCPCS: 36415; 70450-TC; 80048-TC; 80053-TC; 80061-TC; 80076-TC; 80164-TC; 81001; 82140-TC; 82565-TC; 82962-TC; 83605-TC; 85025-TC; 97112-TC; 97116-TC; 97530-TC; G0480; J1815